=== PATIENT | male | born 2005 | race Hispanic/Latino ===

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

== ENCOUNTER 2024-04-27 21:37 | Emergency (ER) | payer OTHER ==
--- OUTSIDE RECORDS SUMMARY | 2024-04-27 21:41 | XMS REPORT | Continuity of Care Document ---
Author Name Unknown Address [address] [facility] [address] [place] [address] Organization [facility] [place] Address [address] [facility] [address] [place] [address] Care Team Providers Care Senior Technical Recruiter Name Role Phone Fetsus Larson MD Primary Care Physician [phone] LEONARDO GARCIA Attending Clinician Unavailable LEONARDO GARCIA Attending Clinician Unavailable LAUREN TOWNSEND Attending Clinician UnavailKALIA Hammond Attending Clinician Jade Razo RN, Key López Attending Clinician UnavailLeonardo Núñez MD Attending Clinician [phone] LEENA TEIXEIRA Attending Clinician KIRSTIN Guevara Attending Clinician Unavailable KIRSTIN SENIOR Attending Clinician Unavailable NADEGE CRUM Attending Clinician Unavailable NADEGE CRUM Attending Clinician Unavailable Festus Larson MD Attending Clinician [phone] Leena Teixeira MD Attending Clinician + [phone] FESTUS LARSON Attending Clinician Unavailable SRIDHAR KING Attending Clinician UnavailFestus Negro MD Attending Clinician [phone] Ty Attending Clinician Unavailable Only, Ang Db Test Attending Clinician UnavailGreg Iraheta MD Attending Clinician [phone] GREG MENDOZA Attending Clinician Unavailable LEONARDO GARCIA Admitting Clinician Unavailable Ty Admitting Clinician Unavailable Payers Payer Name Policy Type Policy Number Effective Date Expirati on Date Source [place] [employer] [id number] 2023 00:00:00 [facility] [id number] Problems Condition Name Condition Details Condition Category Status Onset Date Resolution Date Last Treatment Date Treating Clinician Comments Source Trauma Trauma Disease Active 04-24 00:00: 00 [facility] Attention deficit hyperactiv ity disorder, predominan tly inattentiv e type Attention Deficit Hyperactiv ity Disorder, Predominan tly Inattentiv e Type Problem Active 07-17 00:00: 00 [facility] Mixed anxiety and depressive disorder Mixed Anxiety and Depressive Disorder Problem Active 07-17 00:00: 00 [facility] Depressive disorder Depressive Disorder Problem Active 07-17 00:00: 00 [facility] Asthma Asthma Problem Active 07-17 00:00: 00 [facility] Gastroesop hageal reflux disease Gastroesop hageal Reflux Disease Problem Active 07-17 00:00: 00 [facility] Intermitte nt palpitatio ns Intermitte nt Palpitatio ns Problem Active 07-17 00:00: 00 [facility] No known active problems No known active problems Disease [facility] Allergies, Adverse Reactions, Alerts Allergy Name Allergy Type Status Severity Reaction(s) Onset Date Inactive Date Treating Clinician Comments Source NO KNOWN ALLERGIE S Drug Class Active [facility] Social History Social Habit Start Date Stop Date Quantity Comments Source [facility] SARS-CoV[facility]2 (event) Not sure [facility] Alcoholic beverage intake 2024-04-25 00:00:00 2024-04-25 00:00:[address] [facility] History of Social function 2024-04-25 00:00:00 2024-04-25 00:00:[address] [facility] Alcohol intake 2014-04-29 00:00:00 2014-04-29 00:00:[address] [facility] Sex assigned at 2004 00:00:00 2004 00:00:[address] [facility] Smoking Status Start Date Stop Date Source Never smoked tobacco [facility] Medications Ordered Medication Name Filled Medication Name Start Date Stop Date Current Medication? Ordering Clinician Indication Dosage Frequency Signature (SIG) Comments Components Source enoxaparin 40 mg/0.4 mL injection 04-25 00:00: 00 05-24 04:59 :00 Yes [id number] 40mg inject 0.4 mL under the skin in the morning for 28 days. [facility] docusate 100 mg capsule 04-25 00:00: 05-11 04:59 :00 Yes [id number] 100mg Take 1 capsule by mouth in the morning and 1 capsule in the evening. Do all this for 15 days. [facility] methocarbam oL 750 mg tablet 04-25 00:00: 05-10 04:59 :00 Yes [id number] 750mg Take 1 tablet by mouth 3 (three) times daily as needed for Pain (scale 4-6) for up to 14 days. [facility] gabapentin 300 mg capsule 04-25 00:00: 05-10 04:59 :00 Yes [id number] 300mg Take 1 capsule by mouth in the morning and 1 capsule at noon and 1 capsule in the evening. Do all this for 14 days. [facility] traMADoL 50 mg tablet 04-25 00:00: 05-03 04:59 :00 Yes [id number] 50mg Take 1 tablet by mouth every 6 (six) hours as needed for Pain (scale 1-3) for up to 7 days. Indication s: acute pain [facility] HYDROcodone -acetaminop hen 10-325 mg tablet 04-25 00:00: 00 05-03 04:59 :00 Yes [id number] 1{tbl} Take 1 tablet by mouth every 6 (six) hours as needed for Pain (scale 4-6) or Pain (scale 7-10) for up to 7 days. Indication s: acute pain [facility] ondansetron 4 mg tablet 04-25 00:00: 00 05-01 04:59 :00 Yes [id number] 4mg Take 1 tablet by mouth every 12 (twelve) hours as needed for Nausea and Vomiting (N/V) for up to 5 days. [facility] amphetamine -dextroamph etamine (ADDERALL XR) 30 mg 24 hr capsule 02-12 00:00: 00 Yes [id number] 30mg Take 1 capsule by mouth every morning. [facility] amphetamine -dextroamph etamine (ADDERALL XR) 30 mg 24 hr capsule 2023-02 00:00: 00 02-12 00:00 :00 No [id number] 30mg Take 1 capsule by mouth every morning. [facility] escitalopra m oxalate 10 mg tablet 16 00:00: 00 Yes [id number] 10mg Take 1 tablet by mouth in the morning. [facility] cloNIDine 0.1 mg tablet 10-22 00:00: 00 Yes [id number] .1mg Take 1 tablet by mouth at bedtime. [facility] amphetamine -dextroamph etamine (ADDERALL XR) 30 mg 24 hr capsule 10-22 00:00: 00 12-14 00:00 :00 No [id number] 30mg Take 1 capsule by mouth every morning. [facility] lidocaine-p rilocaine cream 10-22 00:00: 00 10-23 04:59 :00 No [id number] Apply to area(s) once now for 1 dose. [facility] amphetamine -dextroamph etamine (ADDERALL XR) 30 mg 24 hr capsule 7- 00:00: 00 10-22 00:00 :00 No [id number] 30mg Take 1 capsule by mouth every morning. [facility] cloNIDine 0.1 mg tablet 5-23 00:00: 00 10-22 00:00 :00 No [id number] .1mg Take 1 tablet by mouth at bedtime. [facility] escitalopra m oxalate 10 mg tablet 5-23 00:00: 00 10-22 00:00 :00 No [id number] 10mg Take 1 tablet by mouth in the morning. [facility] ADDERALL XR 30 mg 24 hr capsule 06-28 00:00: 00 08-28 00:00 :00 No [id number] 30mg Take 1 capsule by mouth every morning. [facility] amphetamine -dextroamph etamine (ADDERALL XR) 30 mg 24 hr capsule 06-28 00:00: 00 06-28 00:00 :00 No [id number] 30mg Take 1 capsule by mouth every morning. [facility] amphetamine -dextroamph etamine (ADDERALL XR) 30 mg 24 hr capsule 06-26 00:00: 00 06-28 00:00 :00 No [id number] 30mg Take 1 capsule by mouth every morning. [facility] cloNIDine 0.1 mg tablet 06-26 00:00: 00 06-28 00:00 :00 No [id number] .1mg Take 1 tablet by mouth at bedtime. [facility] escitalopra m oxalate 10 mg tablet 06-26 00:00: 00 06-28 00:00 :00 No [id number] 10mg Take 1 tablet by mouth in the morning. [facility] lidocaine-p rilocaine cream 06-26 00:00: 00 06-27 04:59 :00 No [id number] Apply to area(s) once now for 1 dose. Apply 1 hour before lab draw. [facility] cloNIDine 0.1 mg tablet 5-11 00:00: 00 06-26 00:00 :00 No .1mg Take 1 tablet by mouth at bedtime. [facility] ADDERALL XR 30 mg 24 hr capsule 4-10 00:00: 00 06-26 00:00 :00 No 30mg Take 1 capsule by mouth every morning. [facility] famotidine 40 mg tablet 3-05 00:00: 00 Yes 40mg Take 1 tablet by mouth in the morning. [facility] permethrin (ELIMITE) 5 % cream 04-29 00:00: 00 06-26 00:00 :00 No Apply neck to toes overnight once a week x 2 applicatio ns [facility] Adderall 30 mg tablet Take 1 tablet every day by oral route. Adderall 30 mg tablet Take 1 tablet every day by oral route. No 1 Q1D Adderall 30 mg tablet Take 1 tablet every day by oral route. [facility] Lexapro 1 tab daily for depression Lexapro 1 tab daily for depression No Lexapro 1 tab daily for depression [facility] Ventolin HFA 90 mcg/actuati on aerosol inhaler Inhale 2 puffs as needed by inhalation route. Ventolin HFA 90 mcg/actuati on aerosol inhaler Inhale 2 puffs as needed by inhalation route. No 2puff(s ) Ventolin HFA 90 mcg/actuat ion aerosol inhaler Inhale 2 puffs as needed by inhalation route. [facility] Immunizations Ordered Immunization Name Filled Immunization Name Date Status Comments Source Meningococcal Polysaccharide (groups A, C, Y and W-135) conjugate vaccine (MCV4P) 2017-09-14 00:00:00 Completed TDAP 2017-09-14 00:00:00 Completed Influenza, Live, Trivalent, Intranasal (FLUMIST) 2013-10-30 00:00:00 Completed Influenza, Live, Trivalent, Intranasal (FLUMIST) 2010-11-25 00:00:00 Completed Influenza, Live, Trivalent, Intranasal (FLUMIST) 2010-02-03 00:00:00 Completed DTaP, Unspecified Formulation 2009-02-11 00:00:00 Completed MMR 2009-02-11 00:00:00 Completed IPV 2009-02-11 00:00:00 Completed Varicella (varivax)(chicken pox) 2009-02-11 00:00:00 Completed HEPATITIS A 2008-10-29 00:00:00 Completed HEPATITIS A 2008-01-09 00:00:00 Completed HEPATITIS A 2006-07-19 00:00:00 Completed DTaP, Unspecified Formulation 2006-05-23 00:00:00 Completed Hib-HbOC 2006-05-23 00:00:00 Completed Proquad (MMR/VARICELLA) 2006-05-23 00:00:00 Completed Pneumococcal 7 Conjugate, PCV7 (Prevnar7) 2006-05-23 00:00:00 Completed DTaP, Unspecified Formulation 2005-07-19 00:00:00 Completed Hep B, Adol or Pedi Dosage 2005-07-19 00:00:00 Completed Hib-HbOC 2005-07-19 00:00:00 Completed Pneumococcal 7 Conjugate, PCV7 (Prevnar7) 2005-07-19 00:00:00 Completed IPV 2005-07-19 00:00:00 Completed Pediarix (dtap/hep B/ipv) 2005-05-11 00:00:[address] [facility] Hib-HbOC 2005-05-11 00:00:00 Completed Pneumococcal 7 Conjugate, PCV7 (Prevnar7) 2005-05-11 00:00:00 Completed DTaP, Unspecified Formulation 2005-03-02 00:00:00 Completed Hep B, Adol or Pedi Dosage 2005-03-02 00:00:00 Completed Hib-HbOC 2005-03-02 00:00:00 Completed Pneumococcal 7 Conjugate, PCV7 (Prevnar7) 2005-03-02 00:00:00 Completed IPV 2005-03-02 00:00:00 Completed Hep B, Adol or Pedi Dosage 2004 00:00:00 Completed Meningococcal Polysaccharide (groups A, C, Y and W-135) conjugate vaccine (MCV4P) Unknown Completed [facility] MMR Unknown Completed [facility] Proquad (MMR/VARICELLA) Unknown Completed [facility] TDAP Unknown Completed [facility] Varicella (varivax)(chicken pox) Unknown Completed [facility] Pediarix (dtap/hep B/ipv) Unknown Completed [facility] DTaP, Unspecified Formulation Unknown Completed [facility] Influenza Virus Vaccine Nasal Unknown Completed [facility] HEPATITIS A Unknown Completed [facility] Hep B, Adol or Pedi Dosage Unknown Completed [facility] Hib-HbOC Unknown Completed [facility] Pneumococcal 7 Conjugate, PCV7 (Prevnar7) Unknown Completed [facility] IPV Unknown Completed [facility] Pediarix (dtap/hep B/ipv) Unknown Completed [facility] DTaP, Unspecified Formulation Unknown Completed [facility] Influenza Virus Vaccine Nasal Unknown Completed [facility] HEPATITIS A Unknown Completed [facility] Hep B, Adol or Pedi Dosage Unknown Completed [facility] Hib-HbOC Unknown Completed [facility] Meningococcal Polysaccharide (groups A, C, Y and W-135) conjugate vaccine (MCV4P) Unknown Completed [facility] MMR Unknown Completed [facility] Proquad (MMR/VARICELLA) Unknown Completed [facility] Pneumococcal 7 Conjugate, PCV7 (Prevnar7) Unknown Completed [facility] IPV Unknown Completed [facility] Pediarix (dtap/hep B/ipv) Unknown Completed [facility] TDAP Unknown Completed [facility] Varicella (varivax)(chicken pox) Unknown Completed [facility] Pediarix (dtap/hep B/ipv) Unknown Completed [facility] DTaP, Unspecified Formulation Unknown Completed [facility] DTaP, Unspecified Formulation Unknown Completed [facility] Influenza Virus Vaccine Nasal Unknown Completed [facility] HEPATITIS A Unknown Completed [facility] Hep B, Adol or Pedi Dosage Unknown Completed [facility] Hib-HbOC Unknown Completed [facility] Meningococcal Polysaccharide (groups A, C, Y and W-135) conjugate vaccine (MCV4P) Unknown Completed [facility] MMR Unknown Completed [facility] Proquad (MMR/VARICELLA) Unknown Completed [facility] Pneumococcal 7 Conjugate, PCV7 (Prevnar7) Unknown Completed [facility] IPV Unknown Completed [facility] TDAP Unknown Completed [facility] Varicella (varivax)(chicken pox) Unknown Completed [facility] Influenza Virus Vaccine Nasal Unknown Completed [facility] Pediarix (dtap/hep B/ipv) Unknown Completed [facility] DTaP, Unspecified Formulation Unknown Completed [facility] Influenza Virus Vaccine Nasal Unknown Completed [facility] HEPATITIS A Unknown Completed [facility] Hep B, Adol or Pedi Dosage Unknown Completed [facility] Hib-HbOC Unknown Completed [facility] Meningococcal Polysaccharide (groups A, C, Y and W-135) conjugate vaccine (MCV4P) Unknown Completed [facility] MMR Unknown Completed [facility] Proquad (MMR/VARICELLA) Unknown Completed [facility] Pneumococcal 7 Conjugate, PCV7 (Prevnar7) Unknown Completed [facility] IPV Unknown Completed [facility] TDAP Unknown Completed [facility] HEPATITIS A Unknown Completed [facility] Varicella (varivax)(chicken pox) Unknown Completed [facility] Pediarix (dtap/hep B/ipv) Unknown Completed [facility] DTaP, Unspecified Formulation Unknown Completed [facility] Influenza Virus Vaccine Nasal Unknown Completed [facility] HEPATITIS A Unknown Completed [facility] Hep B, Adol or Pedi Dosage Unknown Completed [facility] Hib-HbOC Unknown Completed [facility] Hep B, Adol or Pedi Dosage Unknown Completed [facility] Meningococcal Polysaccharide (groups A, C, Y and W-135) conjugate vaccine (MCV4P) Unknown Completed [facility] MMR Unknown Completed [facility] Proquad (MMR/VARICELLA) Unknown Completed [facility] Pneumococcal 7 Conjugate, PCV7 (Prevnar7) Unknown Completed [facility] IPV Unknown Completed [facility] TDAP Unknown Completed [facility] Varicella (varivax)(chicken pox) Unknown Completed [facility] Hib-HbOC Unknown Completed [facility] Pediarix (dtap/hep B/ipv) Unknown Completed [facility] DTaP, Unspecified Formulation Unknown Completed [facility] Influenza Virus Vaccine Nasal Unknown Completed [facility] HEPATITIS A Unknown Completed [facility] Hep B, Adol or Pedi Dosage Unknown Completed [facility] Hib-HbOC Unknown Completed [facility] Meningococcal Polysaccharide (groups A, C, Y and W-135) conjugate vaccine (MCV4P) Unknown Completed [facility] MMR Unknown Completed [facility] Proquad (MMR/VARICELLA) Unknown Completed [facility] Pneumococcal 7 Conjugate, PCV7 (Prevnar7) Unknown Completed [facility] IPV Unknown Completed [facility] TDAP Unknown Completed [facility] Varicella (varivax)(chicken pox) Unknown Completed [facility] Pediarix (dtap/hep B/ipv) Unknown Completed [facility] DTaP, Unspecified Formulation Unknown Completed [facility] Influenza, Live, Trivalent, Intranasal (FLUMIST) Unknown Completed [facility] HEPATITIS A Unknown Completed [facility] ty [facility] Hep B, Adol or Pedi Dosage Unknown Completed [facility] Hib-HbOC Unknown Completed [facility] Meningococcal Polysaccharide (groups A, C, Y and W-135) conjugate vaccine (MCV4P) Unknown Completed [facility] MMR Unknown Completed [facility] Proquad (MMR/VARICELLA) Unknown Completed [facility] Pneumococcal 7 Conjugate, PCV7 (Prevnar7) Unknown Completed [facility] Meningococcal Polysaccharide (groups A, C, Y and W-135) conjugate vaccine (MCV4P) Unknown Completed [facility] IPV Unknown Completed [facility] TDAP Unknown Completed [facility] Varicella (varivax)(chicken pox) Unknown Completed [facility] MMR Unknown Completed [facility] Proquad (MMR/VARICELLA) Unknown Completed [facility] Pneumococcal 7 Conjugate, PCV7 (Prevnar7) Unknown Completed [facility] IPV Unknown Completed [facility] TDAP Unknown Completed [facility] Varicella (varivax)(chicken pox) Unknown Completed [facility] Vital Signs Vital Name Observation Time Observation Value Comments S ource Systolic blood pressure 2023-10-23 21:24:00 132 mm[Hg] [facility] Diastolic blood pressure 2023-10-23 21:24:00 83 mm[Hg] [facility] Heart rate 2023-10-23 21:18:00 95 /min [facility] Body temperature 2023-10-23 21:18:[address] [facility] Respiratory rate 2023-10-23 21:18:00 18 /min [facility] Body height 2023-10-23 21:18:00 175.9 cm [facility] Body weight 2023-10-23 21:18:00 101.152 kg [facility] BMI 2023-10-23 21:18:00 32.69 kg/m2 [facility] Body mass index (BMI) [Percentile] Per age and sex 2023-10-23 21:18:00 96.75 % [facility] Oxygen saturation in Arterial blood by Pulse oximetry 2023-10-23 21:18:00 98 /min [facility] Height 2023-07-18 00:00:00 71 [in_i] [facility] BP Diastolic 2023-07-18 00:00:00 64 mm[Hg] [facility] BMI (Body Mass Index) 2023-07-18 00:00:00 31 kg/m2 [facility] BP Systolic 2023-07-18 00:00:00 122 mm[Hg] [facility] Body Weight 2023-07-18 00:00:00 222 [lb_av] [facility] Systolic blood pressure 2023-06-27 21:34:00 135 mm[Hg] [facility] Diastolic blood pressure 2023-06-27 21:34:00 74 mm[Hg] [facility] Heart rate 2023-06-27 21:34:00 76 /min [facility] Body temperature 2023-06-27 21:34:[address] [facility] Respiratory rate 2023-06-27 21:34:00 19 /min [facility] Body height 2023-06-27 21:34:00 178.5 cm [facility] Body weight 2023-06-27 21:34:00 101.209 kg [facility] BMI 2023-06-27 21:34:00 31.76 kg/m2 [facility] Body mass index (BMI) [Percentile] Per age and sex 2023-06-27 21:34:00 96.40 % [facility] Oxygen saturation in Arterial blood by Pulse oximetry 2023-06-27 21:34:00 97 /min [facility] Encounters Start Date/Time End Date/Time Encounter Type Admission Type Attending Clinicians Care Facility Care Department Encounter ID Source 2024-05-14 13:00:00 2024-05-14 13:00:00 Outpatient LEONARDO VEGA MARK [facility] [id number] [facility] 2024-05-03 13:30:00 2024-05-03 13:30:00 Outpatient R LAUREN TOWNSEND [facility] [id number] [facility] 2024-04-29 13:45:00 2024-04-29 13:45:00 Outpatient R [facility] [id number] [facility] 2024-04-26 00:00:00 2024-04-26 21:16:27 Nurse Triage Key Razo Katelyn D [facility] 1..114 [id number] [facility] 2024-04-26 00:00:00 2024-04-26 20:39:23 Telephone Leonardo Garcia [facility] 1..114 [id number] [facility] 2024-04-24 05:54:00 2024-04-25 18:00:00 Inpatient T LEONARDO GARCIA MARK [facility] [id number] [facility] 2024-04-25 11:00:00 2024-04-25 11:00:00 Outpatient R LEENA HAILE [facility] [id number] [facility] 2024-04-23 23:19:00 2024-04-24 04:45:00 Emergency X KIRSTIN S[facility]IOR [facility] [id number] [facility] 2024-03-27 16:20:00 2024-03-27 16:20:00 Outpatient R NADEGE CRUM LESLEY [facility] [id number] [facility] 2024-03-08 00:00:00 2024-03-08 16:18:47 Festus Tran [facility] 1..114 [id number] [facility] 2024-02-29 15:00:00 2024-02-29 15:00:00 Outpatient LEENA MANCIA [facility] [id number] [facility] 2024-02-13 00:00:00 2024-02-13 16:54:42 Micheal Larson Festus [facility] [id number] [facility] 2024-02-13 00:00:00 2024-02-13 15:40:43 Telephone Rosalie acosta Leena [facility] [id number] [facility] 2024-01-02 14:00:00 2024-01-02 14:00:00 Outpatient FESTUS DISLA [facility] [id number] [facility] 2023-12-15 00:00:00 2023-12-15 14:39:25 Micheal Larson [facility] [id number] [facility] 2023-11-23 11:00:00 2023-11-23 11:00:00 Outpatient KALIA CRAWFORD [facility] [id number] [facility] [facility] 2023-11-06 13:40:00 2023-11-06 13:40:00 Outpatient LEENA MANCIA [facility] [id number] [facility] 2023-11-01 14:00:00 2023-11-01 14:00:00 Outpatient SRIDHAR GRACIA [facility] [id number] [facility] 2023-10-31 00:00:00 2023-10-31 09:22:44 Telephone Festus Larson [facility] 1.2.840.114 350.1.13.10 [id number] [id number] 225 [id number] [facility] 2023-10-23 16:00:00 2023-10-23 16:50:30 Outpatient R ROSALIE ACOSTA [facility] [id number] [facility] 2023-10-23 16:00:00 2023-10-23 16:50:30 Office Visit Rosalie acosta Leena [facility] 1.2.840.114 350.1.13.10 4.2.7.2.686 [id number] 225 [id number] [facility] 2023-10-14 00:00:00 2023-10-16 08:44:45 Telephone [facility] 1.2.840.114 350.1.13.10 [id number] [id number] 225 [id number] [facility] 2023-09-15 09:40:00 2023-09-15 09:40:00 Outpatient FESTUS DISLA [facility] [id number] [facility] 2023-09-06 13:40:00 2023-09-06 13:40:00 Outpatient FESTUS DISLA [facility] [id number] [facility] 2023-08-28 00:00:00 2023-08-29 10:02:53 Telephone Festus Larson [facility] 1.2.840.114 350.1.13.10 4.2.7.2.686 [id number] 225 [id number] [facility] 2023-07-18 00:00:00 2023-07-18 00:00:00 Anne-Marie Womack MD: [id number] , [address], [place] [address] , Ph. [facility] [place] - _[facility] [id number] [facility] 2023-07-03 00:00:00 2023-07-05 08:30:31 Telephone [facility] 1.2.840.114 350.1.13.10 4.2.7.2.686 [id number] 225 [id number] [facility] 2023-06-29 00:00:00 2023-06-29 15:06:58 Telephone [facility] 1.2.840.114 350.1.13.10 4.2.7.2.686 [id number] 225 [id number] [facility] 2023-06-27 16:20:00 2023-06-27 16:58:32 Outpatient R NEOFESTUS [facility] [id number] [facility] 2023-06-27 16:20:00 2023-06-27 16:58:32 Office Visit [facility] 1.2.840.114 350.1.13.10 4.2.7.2.686 [id number] 225 [id number] [facility] 2023-06-23 00:00:00 2023-06-27 08:55:31 Telephone [facility] 1.2.840.114 350.1.13.10 4.2.7.2.686 [id number] 225 [id number] [facility] 2023-06-20 00:00:00 2023-06-20 10:38:47 Telephone [facility] 1.2.840.114 350.1.13.10 4.2.7.2.686 [id number] 225 [id number] [facility] 2023-05-19 00:00:00 2023-05-19 00:00:00 Outpatient Jacki_Kaitlyn STANLEY VFP VFP [id number] Audrey kessler 2020-10-05 18:22:48 2020-10-05 18:32:48 Laboratory Only Only, Ang Db Test Song, [facility] [id number] 350.1.13.10 [id number] [id number] [facility] 2020-10-05 18:25:00 2020-10-05 18:25:00 Outpatient R GREG MENDOZA [facility] [id number] [facility] Notes Date/Time Note Provider Source 2024-04-26 20:47:00 Regarding: femur surgery 04/24 lightheaded, vision got blurry and sweating when getting up x 10 min ago ----- Message from Patient Wrapper And Preserver sent at 04/26/2024 8:38 PM CDT ----- Jose Woodall is a 18 year old male Key Razo RN [facility] 2024-04-26 20:47:00 Adult Triage Assessment Last Clinic Visit: 04/24/24, general surgery and ortho, L femur Primary Symptom: reports that when was attempting to get up that vision was blurry Onset / Duration: today prior to call, and earlier today when spoke with clinic Location / Description: neuro Pain / Severity: 7/10 pain in leg Associated Symptoms: 146/88 blood pressure, reports that the symptoms have resolved Fever / Method: denies fever did not check Hydration: reports unable to have BM, making urine and eating/drinking normally and drinking enough water Treatment so far: 0300 took the pain pill, is currently taking docusate 100 mg in evenings and gabapentin as prescribed. Effect on ADL's: moderate LMP: N/A Pre-existing condition / Immunocompromised: No PMH Jose Woodall is a 18 year old male whose mother is calling today regarding patient getting flushes of dizziness and hot flashes when standing, and needs assistance sitting down. This has happened multiple times today despite not taking the pain medication since 0300 this AM. Assessment and triage completed per dizziness-lightheaded protocol. Mother advised to be seen in ER and pending ortho call back for assessment. Advised mother on emergent symptoms and would page out ortho for call back. Advised to call access center nurses with questions and concerns 29/08. Patient mother verbalizes understanding and agrees to follow plan of care. 2104 paged deckhand sponge boat ortho at this time for call back 2109 paged x 2 ortho deckhand sponge boat Patient mother unsure if going to the ER, explained emergent symptoms and reason for disposition and explained if deckhand sponge boat gets back to me I will relay information to her. Key Razo RN Reason for Disposition SEVERE dizziness (e.g., unable to stand, requires support to walk, feels like passing out now) Protocols used: Dizziness - [id number] [facility] 2024-03-11 10:21:18 Attempted to call, left VM patient needs appt before refilling medication. [facility] Naomy Alberto MA [facility] 2024-03-08 16:00:13 LEMUEL-- 9.16.24 Last filled-- 1.7.25 F/u due-- January, no show last 2 appts [facility] 2024-03-08 15:15:43 Mother requesting refills for pt famotidine 40 mg tablet and amphetamine-dextroamphetamin e (ADDERALL XR) 30 mg 24 hr capsule and HEB in [place]. [facility] 2024-02-13 15:39:41 Spoke with [facility], informed her referral was placed in October of 2023. Gave [facility] referral department number to get cardio information, and set up appointment. MOC verbalized understanding. Alberto MA [facility] 2024-02-13 15:17:30 Patient is requesting a referral to: Dept: cardiology Reason for referral Duration of problem: on going Internal / External referral: R03.0 (ICD-10-CM Name of provider / location patient requesting: [facility] Phone number: [phone] Fax number: na Appt already scheduled?: no If yes, date of appt.: na Zamora [facility] 2024-02-13 15:14:13 Patient requesting a refill of: Medication: amphetamine-dextroamphetamin e Dose: 30 mg Route: refill Quantity: 30 Pharmacy: [facility] [address] [facility] [address] [place] [id number] Last appt.: 10/22 Next appt.: 02/28 [facility] 2023-12-15 14:26:29 LEMUEL 10/23/2023 LRF 10/23/2023 Appt due 01/22/2024 Alberto MA [facility] 2023-12-15 14:21:50 Patient requesting a refill of: Medication: amphetamine-dextroamphetamin e Dose: 30 mg Route: refill Quantity: 30 Pharmacy: [facility] [address] & [address] [place] [address] Last appt.: 10/22 Next appt.: 01/01 [facility] 2023-10-31 09:19:20 Called and spoke with MO. She states that patient has tried OTC medication with no relieve for cough and congestion. I scheduled her an appointment for tomorrow. MOC will call back if she decides to take him to urgent care this evening. Katia Sawyer MA [facility] 2023-10-31 08:43:51 Jose Woodall is a 17 year old male Pt mom called and states that pt has a cough and has congestion. She is requesting to speak with a nurse for recommendations. Please advise. Viji Ayon [facility] 2023-10-16 08:44:18 Pt schedule with on 10/22 Peyton Harris [facility] 2023-10-14 17:54:47 Jose Woodall is a 17 year old male whose mother is calling to schedule an ADHD follow up appt but Dr. Larson doesn't have any openings until January. Please contact the [facility] to assist. Neha Jean [facility] 2023-08-28 15:41:46 Last filled: 06/29/2023 LEMUEL: 06/27/2023 Jenise Hager MA [facility] 2023-08-28 15:31:30 Jose Woodall is a 17 year old male Pt is going out of town. Mom reschedule for Sep 14 Mom is asking can you refill this medication or does he have to wait until his next visit to get a refill Disp Refills Start End KALANI ADDERALL XR 30 mg 24 hr capsule Ally Goncalves [facility] 2023-07-05 08:30:09 Disregard, brand name sent. T [facility] 2023-07-03 09:29:44 Images from the original note were not included. Julieta Laureano [facility] 2023-06-29 16:17:34 Addended by: FESTUS LARSON on: 06/29/2023 04:17 PM Modules accepted: Orders T [facility] 2023-06-29 16:12:16 Please send as brand name T [facility] 2023-06-29 14:45:23 Jose Woodall is a 17 year old male Patients mother called stating the medications sent to [facility] pharmacy 06/26 need to be sent to [facility] pharmacy on file. Please contact [phone] (home) [phone] (work) [facility] [address] Aroldo Alfonso [facility] 2023-06-27 08:55:11 Adderall XR 30mg, Lexapro 10mg, clonidine 0.1mg [facility]ED-PEDIATRICS STAFF [facility] 2023-06-26 11:52:05 Records scanned into chart and placed on Dr Larson's desk for review. [facility] 2023-06-23 12:27:43 Records placed in basket in nurses station. Julieta Laureano [facility]
[2024-04-27] MEDS ORDERED: NA CHLORIDE 0.9% 1,000 ML ONE (22:08)
[2024-04-27 22:25] LABS: Absolute Lymphocytes (CBC) 1.1 K/uL (0.7-4.9); Absolute Monocytes 0.8 K/uL (0.1-1.3); Absolute Neutrophil 6.3 K/uL (1.8-8.0); Basophils % 0.2 % (0-1.3); Eosinophils % 0.4 % (0-4.4); Hematocrit 25.9 % (39.6-49.0); Hemoglobin 8.5 g/dL (13.6-17.9); Lymphocytes % 13.7 % (15.3-44.8); MCH 25.3 pg (27.0-35.0); MCHC 32.9 g/dL (32.0-36.0); MCV 76.8 fL (80-100); MPV 7.1 fL (7.6-11.3); Monocytes % 10.2 % (3.3-12.3); Neutrophils % 75.5 % (41.7-73.7); Nucleated Red Blood Cells % 0.1 % (0-0); Platelets 277 thou/uL (152-406); RBC Red Blood Cell Count 3.38 M/uL (4.33-5.43); Red Cell Distribution Width 12.9 % (12.1-15.2); Specific Gravity 1.012 (1.005-1.030); Urine Bilirubin NEGATIVE (Negative); Urine Blood Negative (Negative); Urine Clarity Clear (Clear); Urine Color Light-Yellow (Yellow); Urine Glucose NEGATIVE (Negative); Urine Ketones NEGATIVE (Negative); Urine Microscopic Reflex YN NO UMIC; Urine Nitrite NEGATIVE (Negative); Urine Protein NEGATIVE (Negative); Urine Urobilinogen Normal (Normal)
[2024-04-27 22:37] LABS: ALT/SGPT 36 U/L (16-61); AST/SGOT 32 U/L (15-37); Albumin 2.5 g/dL (3.4-5.0); Albumin/Globulin Ratio 0.8 (1.1-1.8); Alkaline Phosphatase 61 U/L (45-117); Anion Gap 7.8 mEq/L (5.0-15.0); BUN Blood Urea Nitrogen 11 mg/dL (7-18); Bicarbonate 28 mEq/L (21-32); Bilirubin Direct 0.3 mg/dL (0-0.2); Bilirubin Indirect, Calculated 0.5 mg/dL (0.2-0.8); Bilirubin Total 0.8 mg/dL (0.2-1.0); Globulin 3.3 g/dL (2.3-3.5); Glomerular Filtration Rate 137 ml/min (=/>90); Glucose Level 100 mg/dL (74-106); Magnesium 1.9 mg/dL (1.6-2.4); Potassium 3.8 mEq/L (3.5-5.1); Protein, Total 5.8 g/dL (6.4-8.2); Sodium Level 136 mEq/L (136-145)
[2024-04-27 22:38] LABS: PT Prothrombin Time 13.3 SECONDS (10-13.0); PTT, Activated Partial Thromb 33.6 SECONDS (27.2-37.4); Protime INR 1.18
[2024-04-27 22:40] LABS: Troponin High Sensitivity < 3.0 pg/mL (<58.9)
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
--- NOTE | 2024-04-27 22:55 | ER ---
Nurse's Notes [facility] Name: Marito Dee Age: 18 yrs Sex: Male : 2005 Arrival Date: 04/27/2024 Time: 21:37 Bed 15 Private MD: Diagnosis: Tachycardia, unspecified;Volume depletion, unspecified Presentation: 04/27 21:45 Chief complaint: EMS states: difficult to arouse, blurry vision, tachycardic. kj2 Coronavirus screen: Client denies travel out of the [place] in the last 14 days. Ebola Screen: No symptoms or risks identified at this time. Initial Sepsis Screen: Does the patient meet any 2 criteria? No. Patient's initial sepsis screen is negative. Does the patient have a suspected source of infection? No. Patient's initial sepsis screen is negative. Risk Assessment: Do you want to hurt yourself or someone else? Patient reports no desire to harm self or others. Onset of symptoms was April 27, 2024. 21:45 Method Of Arrival: EMS: [facility] kj2 21:45 Acuity: QUETA 3 kj2 22:16 Care prior to arrival: IV initiated. 20 GA, in the left antecubital area. vc1 Triage Assessment: 21:50 General: Appears in no apparent distress. uncomfortable, Behavior is cooperative. kj2 21:53 Pain: Complains of pain in left leg Pain currently is 6 out of 10 on a pain scale. kj2 Neuro: Level of Consciousness is awake, alert, obeys commands, Oriented to person, place, time, situation. Cardiovascular: Patient's skin is warm and dry. Respiratory: Airway is patent Respiratory effort is even, unlabored. GI: No signs and/or symptoms were reported involving the gastrointestinal system. : No signs and/or symptoms were reported regarding the genitourinary system. Historical: - Allergies: 21:55 No Known Allergies; kj2 - PMHx: 21:50 ADD/ADHD; Anxiety; Asthma; kj2 - Immunization history:: Adult Immunizations unknown. - Infectious Disease History:: Denies. - Social history:: Smoking status: unknown. Screenin:14 [facility] ED Fall Risk Assessment (Adult) History of falling in the last 3 months, vc1 including since admission No falls in past 3 months (0 pts) Confusion or Disorientation No (0 pts) Intoxicated or Sedated No (0 pts) Impaired Gait Yes (1 pt) Mobility Assist Device Used No (0 pt) Altered Elimination No (0 pt) Score/Fall Risk Level 0 - 2 = Low Risk Oriented to surroundings, Maintained a safe environment, Educated pt \T\ family on fall prevention, incl call for assistance when getting out of bed, Provided non-skid footwear, Hourly rounding (assess needs \T\ fall precautionary measures) done. Abuse screen: Denies threats or abuse. Nutritional screening: No deficits noted. Tuberculosis screening: No symptoms or risk factors identified. Assessment: 22:48 Reassessment: Patient appears in no apparent distress at this time. No changes from 1 previously documented assessment. Patient and/or family updated on plan of care and expected duration. Pain level reassessed. Patient is alert, oriented x 3, equal unlabored respirations, skin warm/dry/pink. Vital Signs: 21:45 Weight 94.35 kg; Height 6 ft. 0 in. ; kj2 21:45 BP 147 / 73; Pulse 99; Resp 20; Temp 98; Pulse Ox 100% ; kj2 22:47 BP 160 / 85; Pulse 103; Resp 19; Pulse Ox 100% ; vc1 23:46 BP 152 / 83; Pulse 92; Resp 18; Pulse Ox 100% ; vc1 21:45 Body Mass Index 28.21 (94.35 kg, 182.88 cm) - Percentile 91.1 % kj2 ED Course: 21:44 Patient arrived in ED. kj2 21:47 Elizabeth Bass FNP-C is [facility]. kb 21:47 Lewis Alcantara MD is Attending Physician. kb 21:50 Triage completed. kj2 22:13 Viji Rodriguez, RN is Primary Nurse. vc1 22:14 Basic Metabolic Panel Sent. vc1 22:14 CBC with Diff Sent. vc1 22:14 Hepatic Function Sent. vc1 22:14 Magnesium Sent. vc1 22:14 Protime (+inr) Sent. vc1 22:14 Ptt, Activated Sent. vc1 22:14 Troponin High Sensitivity Sent. vc1 22:14 Urinalysis w/ reflexes Sent. vc1 22:14 Arm band placed on right wrist. vc1 22:15 Patient has correct armband on for positive identification. Bed in low position. Call vc1 light in reach. Provided Education on: call light. gambling monitor on. Pulse ox on. NIBP on. 22:16 Maintain EMS IV. Dressing intact. Good blood return noted. Site clean \T\ dry. Gauge \T\ vc 1 site: 20 left AC. Flushed with 10 mL NS. 23:01 No provider procedures requiring assistance completed. IV discontinued, intact, vc1 bleeding controlled, No redness/swelling at site. Pressure dressing applied. Administered Medications: 22:16 Drug: NS 0.9% IV 1000 ml IV at 1 bolus Per protocol; to be given as a bolus over 60 vc1 minutes Route: IV; Rate: 1 bolus; Site: left antecubital; 23:47 Follow up: IV Status: Completed infusion; IV Intake: 1000ml vc1 Medication: 22:15 VIS not applicable for this client. vc1 Intake: 23:47 IV: 1000ml; Total: 1000ml. vc1 Outcome: 22:55 Discharge ordered by MD. otto 23:01 Discharged to home via wheelchair, with family, vc1 23:01 Condition: stable 23:01 Discharge instructions given to patient, family, Instructed on discharge instructions, follow up and referral plans. Demonstrated understanding of instructions, follow-up care, 23:47 Patient left the ED. vc1 Signatures: Elizabeth Bass FNP-C FNP-Ckb Cal[place]ote, Vanessa RN RN vc1 Etelvina Fuller RN RN kj2
[2024-04-28 00:08] VITALS: TEMP 98; O2SAT 100
[2024-04-28 00:10] VITALS: BP 152/83
--- NOTE | 2024-04-29 12:03 | EKG ---
Test Date: 2024-04-27 Test Time: 22:28:02 Termite Control Service Representative: QUITA MEASUREMENT RESULTS: Intervals: Rate: 94 GA: 154 QRSD: 86 QT: 334 QTc: 417 [place]: P: 34 GA: 154 QRS: 70 T: 25 INTERPRETIVE STATEMENTS: Normal sinus rhythm Normal ECG Compared to ECG 02/15/2023 02:52:31 No significant changes Electronically Signed On 04-29-24 11:59:59 CDT by Yonas Grey
== END 2024-04-27 23:47 | disposition home or self-care (01) ==
LOC: ER 21:37
DX: R00.0 Tachycardia, unspecified (principal); E86.9 Volume depletion, unspecified
CPT/HCPCS: 96361; 93005; 85025; 80048; 36415; 83735; 85610; 80076; 85730; 81003; 84484; 96360; 99285; J7030

== ENCOUNTER 2024-06-02 23:26 | Emergency (ER) | payer OTHER ==
--- OUTSIDE RECORDS SUMMARY | 2024-06-02 23:31 | XMS REPORT | Continuity of Care Document ---
Author Name Unknown Address [address] [facility] [place] [address] [facility] Address [address] [facility] [place] [address] Care Team Providers Care Carriage Dogger Name Role Phone GUTIERREZ WOLFE Primary Care Physician UnavailGUTEIRREZ Au Attending Clinician LEONARDO Cunningham Attending Clinician LEONARDO Cunningham Attending Clinician Unavailable VINCENT TOWNSEND K.HEleanor Attending Clinician Leonardo Barr MD Attending Clinician [phone] Paul MARCOS, Vincent K.H. Attending Clinician [phone] Maloney PTJulieta R Attending Clinician Greta Cantu MD Attending Clinician [phone] GRETA CUMMINGS Attending Clinician GRETA East Attending Clinician Unavailrandall Wolfe MD, Gutierrez Attending Clinician [phone] ALEJANDRO LORA Attending Clinician Unavailable ALEJANDRO LORA Attending Clinician Alejandro Noyola MD Attending Clinician [phone] Ronnie RN, Piedad L Attending Clinician KALIA Lewis Attending Clinician Jade Obando RN, Pooja Hernandez Attending Clinician Unavail deon Davison RN, Sarah Attending Clinician Key Arteaga RN Attending Clinician Unavailab LEENA Delgado Attending Clinician Koko Hairston MD Attending Clinician [phone] Daria Sherman MD Attending Clinician KIRSTIN SENIOR Attending Clinician Unavailable KIRSTIN SENIOR Attending Clinician Unavailable NADEGE CRUM Attending Clinician Unavailable NADEGE CRUM Attending Clinician Unavailable Reji MARCOS, Leena Attending Clinician [phone]- [phone] SRIDHAR KING Attending Clinician Unavaila olman Wolfe MD, Gutierrez Attending Clinician [phone] Ty Attending Clinician Unavailable Only, Ang Db Test Attending Clinician UnavailLore Iraheta MD Attending Clinician [phone] LORE NAVARRO Attending Clinician Unavailable GARCIALEONARDO Admitting Clinician Unavailable Ty Admitting Clinician Unavailable Payers Payer Name Policy Type Policy Number Effective Date Expirati on Date Source [place] [employer] [id number] 2023 00:00:00 [facility] [id number] Problems Condition Name Condition Details Condition Category Status Onset Date Resolution Date Last Treatment Date Treating Clinician Comments Source Trauma Trauma Disease Active 04-24 00:00: 00 [facility] Attention deficit hyperactiv ity disorder, predominan tly [...] Reflux Disease Problem Active 07-17 00:00: 00 [facility] Intermitte nt palpitatio ns Intermitte nt Palpitatio ns Problem Active 07-17 00:00: 00 [facility] No known active problems No known active problems Disease [facility] Allergies, Adverse Reactions, Alerts Allergy Name Allergy Type Status Severity Reaction(s) Onset Date Inactive Date Treating Clinician Comments Source NO KNOWN ALLERGIE S Drug Class Active [facility] Social History Social Habit Start Date Stop Date Quantity Comments [facility]2 (event) Not sure [facility] Alcoholic beverage intake 2024-05-29 00:00:00 2024-05-29 00:00:00 [facility] History of Social function 2024-05-29 00:00:00 2024-05-29 00:00:00 [facility] Alcohol intake 2014-04-29 00:00:00 2014-04-29 00:00:00 [facility] Sex assigned at 2004 00:00:00 2005 00:00:00 [facility] Smoking Status Start Date Stop Date Source Never smoked tobacco [facility] Medications Ordered Medication Name Filled Medication Name Start Date Stop Date Current Medication? Ordering Clinician Indication Dosage Frequency Signature (SIG) Comments Components Source traMADoL 50 mg tablet 05-29 00:00: 00 06-06 04:59 :00 Yes [id number] 50mg Take 1 tablet by mouth every 6 (six) hours as needed for Pain (scale 7-10) for up to 7 days. Indication s: acute pain [facility] methocarbam oL 750 mg tablet 05-29 00:00: 00 06-06 04:59 :00 Yes [id number] 750mg Take 1 tablet by mouth 4 (four) times daily for 7 days. [facility] HYDROcodone -acetaminop hen 7.5-325 mg per tablet 16 00:00: 00 05-30 04:59 :00 Yes [id number] 1{tbl} Take 1 tablet by mouth every 6 (six) hours as needed for Pain for up to 7 days. Indication s: acute pain, s/p femur IMN [facility] HYDROcodone -acetaminop hen 7.5-325 mg per tablet 09 00:00: 00 05-23 04:59 :00 Yes [id number] 1{tbl} Take 1 tablet by mouth every 6 (six) hours as needed for Pain for up to 7 days. Indication s: acute pain [facility] methocarbam oL 750 mg tablet 05-14 00:00: 00 Yes [id number] 750mg Take 1 tablet by mouth 3 (three) times daily as needed for Insomnia (muscle spasms). [facility] cloNIDine 0.1 mg tablet 05-08 00:00: 00 Yes [id number] .1mg Take 1 tablet by mouth at bedtime. [facility] escitalopra m oxalate 10 mg tablet 05-08 00:00: 00 Yes [id number] 10mg Take 1 tablet by mouth in the morning. [facility] famotidine 40 mg tablet 05-08 00:00: 00 Yes [id number] 40mg Take 1 tablet by mouth in the morning. [facility] albuterol sulfate HFA 90 mcg/actuati on aerosol inhaler 05-08 00:00: 00 Yes [id number] 2{puff} Inhale 2 Puffs every 4 (four) hours as needed for Wheezing or Shortness of Breath. [facility] ADDERALL XR 30 mg 24 hr capsule 05-08 00:00: 00 Yes [id number] 30mg Take 1 capsule by mouth every morning. [facility] HYDROcodone -acetaminop hen 10-325 mg tablet 05-08 00:00: 00 05-16 04:59 :00 Yes [id number] 1{tbl} Take 1 tablet by mouth every 6 (six) hours as needed for Pain (scale 4-6) for up to 7 days. Indication s: acute pain, surgery [facility] amphetamine -dextroamph etamine (ADDERALL XR) 30 mg 24 hr capsule 05-08 00:00: 00 05-08 00:00 :00 No [id number] 30mg Take 1 capsule by mouth every morning. [facility] HYDROcodone -acetaminop hen 10-325 mg tablet 05-03 00:00: 00 Yes [id number] 1{tbl} Take 1 tablet by mouth every 6 (six) hours as needed for Pain (scale 4-6). Indication s: acute pain, femur fx with surgery [facility] HYDROcodone -acetaminop hen 10-325 mg tablet 05-02 00:00: 05-03 00:00 :00 No [id number] 1{tbl} Take 1 tablet by mouth every 6 (six) hours as needed for Pain (scale 4-6) for up to 7 days. Indication s: acute pain, femur fx with surgery [facility] enoxaparin 40 mg/0.4 mL injection enoxaparin 40 mg/0.4 mL injection 04-25 00:00: 05-24 04:59 :00 Yes [id number] 40mg inject 0.4 mL under the skin in the morning for 28 days. [facility] docusate 100 mg capsule 04-25 00:00: 05-11 04:59 :00 Yes [id number] 100mg Take 1 capsule by mouth in the morning and 1 capsule in the evening. Do all this for 15 days. [facility] methocarbam oL 750 mg tablet 04-25 00:00: 05-10 04:59 :00 Yes [id number] 750mg Take 1 tablet by mouth 3 (three) times daily as needed for Pain (scale 4-6) for up to 14 days. [facility] gabapentin 300 mg capsule 04-25 00:00: 00 05-10 04:59 :00 Yes [id number] 300mg Take 1 capsule by mouth in the morning and 1 capsule at noon and 1 capsule in the evening. Do all this for 14 days. [facility] traMADoL 50 mg tablet 04-25 00:00: 00 05-03 04:59 :00 Yes [id number] 50mg Take 1 tablet by mouth every 6 (six) hours as needed for Pain (scale 1-3) for up to 7 days. Indication s: acute pain [facility] HYDROcodone -acetaminop hen 10-325 mg tablet 20 00:00: 00 05-02 14:00 :30 No [id number] 1{tbl} Take 1 tablet by mouth every 6 (six) hours as needed for Pain (scale 4-6) or Pain (scale 7-10) for up to 7 days. Indication s: acute pain [facility] ondansetron 4 mg tablet 04-25 00:00: 00 05-01 04:59 :00 Yes [id number] 4mg Take 1 tablet by mouth every 12 (twelve) hours as needed for Nausea and Vomiting (N/V) for up to 5 days. [facility] EPINEPHrine 1:1,000 (1 mg/mL) (ADRENALIN) injection 04-24 19:00: 00 04-24 20:27 :04 No Infiltrati on, ONCE INTRA PROCEDURE, Starting on Mon04/24/24 at 1400, Until Mon04/24/24 at 1527, Routine, Intra-op [facility] bupivacaine (preserv free) (SENSORCAIN E MPF) 0.25 % (2.5 mg/mL) injection 04-24 19:00: 00 04-24 20:26 :52 No Infiltrati on, ONCE INTRA PROCEDURE, Starting on Mon04/24/24 at 1400, Until Mon04/24/24 at 1526, Routine, Intra-op [facility] acetaminoph en (OFIRMEV) IV piggyback 04-24 18:09: 00 04-24 18:41 :18 No IV Infusion, Administer over 15 Minutes, ONCE INTRA PROCEDURE, Starting on Mon04/24/24 at 1309, Until Mon04/24/24 at 1341, Routine, Intra-op [facility] ondansetron (ZOFRAN (PF)) injection 04-24 18:09: 00 04-24 18:41 :18 No Slow IV Push, ONCE INTRA PROCEDURE, Starting on Mon04/24/24 at 1309, Until Mon04/24/24 at 1341, Administer over 2-5 Minutes, [facility] lactated ringers [facility] infusion 04-24 16:30: 00 04-24 18:41 :18 No IV Infusion, CONTINUOUS PRN, Starting on Mon04/24/24 at 1130, Until Mon04/24/24 at 1341, Routine, Intra-op [facility] ceFAZolin (ANCEF) injection 04-24 16:20: 00 04-24 18:41 :18 No Intravenou s, ONCE INTRA PROCEDURE, Starting on Mon04/24/24 at 1120, Until Mon04/24/24 at 1341, HARIKA, Intra-op [facility] HYDROmorphO ne (DILAUDID) injection 04-24 16:20: 00 04-24 18:41 :19 No Slow IV Push, ONCE INTRA PROCEDURE, Starting on Mon04/24/24 at 1120, Until Mon04/24/24 at 1341, Routine, Intra-op [facility] phenylephri ne (VAZCULEP) injection 04-24 16:08: 00 04-24 18:41 :19 No Slow IV Push, ONCE INTRA PROCEDURE, Starting on Mon04/24/24 at 1108, Until Mon04/24/24 at 1341, Routine, Intra-op [facility] dexMEDEtomi dine (PRECEDEX) 20 mcg/0.2 mL syringe 04-24 15:59: 00 04-24 18:41 :19 No Slow IV Push, ONCE INTRA PROCEDURE, Starting on Mon04/24/24 at 1059, Until Mon04/24/24 at 1341, Routine, Intra-op [facility] dexamethaso ne (DECADRON PHOSPHATE) 4 mg/mL injection 04-24 15:52: 00 04-24 18:41 :19 No IV Push, ONCE INTRA PROCEDURE, Starting on Mon04/24/24 at 1052, Until Mon04/24/24 at 1341, Routine, Intra-op [facility] rocuronium (ZEMURON) injection 04-24 15:51: 00 04-24 18:41 :19 No IV Push, ONCE INTRA PROCEDURE, Starting on Mon04/24/24 at 1051, Until Mon04/24/24 at 1341, Routine, Intra-op [facility] propofoL IV infusion 04-24 15:50: 00 04-24 18:41 :19 No Intravenou s, ONCE INTRA PROCEDURE, Starting on Mon04/24/24 at 1050, Intra-op [facility] lidocaine 1% (XYLOCAINE) 100 mg/10 mL (1 %) injection 04-24 15:49: 00 04-24 18:41 :19 No Intravenou s, ONCE INTRA PROCEDURE, Starting on Mon04/24/24 at 1049, Until Mon04/24/24 at 1341, Routine, Intra-op [facility] FENTanyl (PF) (SUBLIMAZE) injection 04-24 15:49: 00 04-24 18:41 :19 No Intravenou s, ONCE INTRA PROCEDURE, Starting on Mon04/24/24 at 1049, Until Mon04/24/24 at 1341, Routine, Intra-op [facility] NaCl 0.9% (NS) IV infusion 04-24 15:44: 00 04-24 18:41 :18 No IV Infusion, CONTINUOUS PRN, Starting on Mon04/24/24 at 1044, Until Mon04/24/24 at 1341, Routine, Intra-op [facility] midazolam (VERSED) injection 04-24 15:44: 00 04-24 18:41 :19 No IV Push, ONCE INTRA PROCEDURE, Starting on Mon04/24/24 at 1044, Until Mon04/24/24 at 1341, Routine, Intra-op [facility] amphetamine -dextroamph etamine (ADDERALL XR) 30 mg 24 hr capsule 02-12 00:00: 00 05-08 00:00 :00 No [id number] 30mg Take 1 capsule by mouth every morning. [facility] amphetamine -dextroamph etamine (ADDERALL XR) 30 mg 24 hr capsule 2023-02 00:00: 00 02-12 00:00 :00 No [id number] 30mg Take 1 capsule by mouth every morning. [facility] escitalopra m oxalate 10 mg tablet -16 00:00: 00 05-08 00:00 :00 No [id number] 10mg Take 1 tablet by mouth in the morning. [facility] cloNIDine 0.1 mg tablet 16 00:00: 00 05-08 00:00 :00 No [id number] .1mg Take 1 tablet by mouth at bedtime. [facility] amphetamine -dextroamph etamine (ADDERALL XR) 30 mg 24 hr capsule 10-22 00:00: 00 12-14 00:00 :00 No [id number] 30mg Take 1 capsule by mouth every morning. [facility] lidocaine-p rilocaine cream 10-22 00:00: 00 10-23 04:59 :00 No [id number] Apply to area(s) once now for 1 dose. [facility] amphetamine -dextroamph etamine (ADDERALL XR) 30 mg 24 hr capsule 08-28 00:00: 00 10-22 00:00 :00 No [id number] 30mg Take 1 capsule by mouth every morning. [facility] cloNIDine 0.1 mg tablet 06-28 00:00: 00 10-22 00:00 :00 No [id number] .1mg Take 1 tablet by mouth at bedtime. [facility] escitalopra m oxalate 10 mg tablet 06-28 00:00: 00 10-22 00:00 :00 No [id number] 10mg Take 1 tablet by mouth in the morning. [facility] ADDERALL XR 30 mg 24 hr capsule 0 -23 00:00: 00 08-28 00:00 :00 No [id number] 30mg Take 1 capsule by mouth every morning. [facility] amphetamine -dextroamph etamine (ADDERALL XR) 30 mg 24 hr capsule 0 5-23 00:00: 00 06-28 00:00 :00 No [id number] 30mg Take 1 capsule by mouth every morning. [facility] amphetamine -dextroamph etamine (ADDERALL XR) 30 mg 24 hr capsule 06-26 00:00: 00 06-28 00:00 :00 No [id number] 30mg Take 1 capsule by mouth every morning. [facility] cloNIDine 0.1 mg tablet 06-26 00:00: 00 06-28 00:00 :00 No [id number] .1mg Take 1 tablet by mouth at bedtime. [facility] escitalopra m oxalate 10 mg tablet 06-26 00:00: 00 06-28 00:00 :00 No [id number] 10mg Take 1 tablet by mouth in the morning. [facility] lidocaine-p rilocaine cream 06-26 00:00: 00 06-27 04:59 :00 No [id number] Apply to area(s) once now for 1 dose. Apply 1 hour before lab draw. [facility] cloNIDine 0.1 mg tablet 06-16 00:00: 00 06-26 00:00 :00 No .1mg Take 1 tablet by mouth at bedtime. [facility] ADDERALL XR 30 mg 24 hr capsule -10 00:00: 00 06-26 00:00 :00 No 30mg Take 1 capsule by mouth every morning. [facility] famotidine 40 mg tablet 04-10 00:00: 00 05-08 00:00 :00 No 40mg Take 1 tablet by mouth in the morning. [facility] permethrin (ELIMITE) 5 % cream 04-29 00:00: 00 06-26 00:00 :00 No Apply neck to toes overnight once a week x 2 applicatio ns [facility] Adderall 30 mg tablet Take 1 tablet [...] 2 puffs as needed by inhalation route. [facility] Ordered Immunization Name [...] Completed Pediarix (dtap/hep B/ipv) 2005-05-11 00:00:00 Completed [facility] Hib-HbOC 2005-05-11 00:00:00 Completed Pneumococcal 7 Conjugate, [...] and W-135) conjugate vaccine (MCV4P) Unknown Completed [facility] MMR Unknown Completed [facility] Proquad (MMR/VARICELLA) Unknown Completed [facility] TDAP Unknown Completed [facility] Varicella (varivax)(chicken pox) Unknown Completed [facility] Pediarix (dtap/hep B/ipv) Unknown Completed [facility] DTaP, Unspecified Formulation Unknown Completed [facility] Influenza Virus Vaccine Nasal Unknown Completed [facility] HEPATITIS A Unknown Completed [facility] Hep B, Adol or Pedi Dosage Unknown Completed [facility] Hib-HbOC Unknown Completed [facility] Pneumococcal 7 Conjugate, PCV7 (Prevnar7) Unknown Completed [facility] IPV Unknown Completed [facility] Pediarix (dtap/hep B/ipv) Unknown Completed [facility] DTaP, Unspecified Formulation Unknown Completed [facility] Influenza Virus Vaccine Nasal Unknown Completed [facility] HEPATITIS A Unknown Completed [facility] Hep B, Adol or Pedi Dosage Unknown Completed [facility] Hib-HbOC Unknown Completed [facility] Meningococcal Polysaccharide (groups A, C, Y and W-135) conjugate vaccine (MCV4P) Unknown Completed [facility] MMR Unknown Completed [facility] Proquad (MMR/VARICELLA) Unknown Completed [facility] Pneumococcal 7 Conjugate, PCV7 (Prevnar7) Unknown Completed [facility] IPV Unknown Completed [facility] Pediarix (dtap/hep B/ipv) Unknown Completed [facility] TDAP Unknown Completed [facility] Varicella (varivax)(chicken pox) Unknown Completed [facility] Pediarix (dtap/hep B/ipv) Unknown Completed [facility] DTaP, Unspecified Formulation Unknown Completed [facility] DTaP, Unspecified Formulation Unknown Completed [facility] Influenza Virus Vaccine Nasal Unknown Completed [facility] HEPATITIS A Unknown Completed [facility] Hep B, Adol or Pedi Dosage Unknown Completed [facility] Hib-HbOC Unknown Completed [facility] Meningococcal Polysaccharide (groups A, C, Y and W-135) conjugate vaccine (MCV4P) Unknown Completed [facility] MMR Unknown Completed [facility] Proquad (MMR/VARICELLA) Unknown Completed [facility] Pneumococcal 7 Conjugate, PCV7 (Prevnar7) Unknown Completed [facility] IPV Unknown Completed [facility] TDAP Unknown Completed [facility] Varicella (varivax)(chicken pox) Unknown Completed [facility] Influenza Virus Vaccine Nasal Unknown Completed [facility] Pediarix (dtap/hep B/ipv) Unknown Completed [facility] DTaP, Unspecified Formulation Unknown Completed [facility] Influenza Virus Vaccine Nasal Unknown Completed [facility] HEPATITIS A Unknown Completed [facility] Hep B, Adol or Pedi Dosage Unknown Completed [facility] Hib-HbOC Unknown Completed [facility] Meningococcal Polysaccharide (groups A, C, Y and W-135) conjugate vaccine (MCV4P) Unknown Completed [facility] MMR Unknown Completed [facility] Proquad (MMR/VARICELLA) Unknown Completed [facility] Pneumococcal 7 Conjugate, PCV7 (Prevnar7) Unknown Completed [facility] IPV Unknown Completed [facility] TDAP Unknown Completed [facility] HEPATITIS A Unknown Completed [facility] Varicella (varivax)(chicken pox) Unknown Completed [facility] Pediarix (dtap/hep B/ipv) Unknown Completed [facility] DTaP, Unspecified Formulation Unknown Completed [facility] Influenza Virus Vaccine Nasal Unknown Completed [facility] HEPATITIS A [facility], Adol or Pedi Dosage Unknown Completed [facility] Hib-HbOC Unknown Completed [facility] Hep B, Adol or Pedi Dosage Unknown Completed [facility] Meningococcal Polysaccharide (groups A, C, Y and W-135) conjugate vaccine (MCV4P) Unknown Completed [facility] MMR Unknown Completed [facility] Proquad (MMR/VARICELLA) Unknown Completed [facility] Pneumococcal 7 Conjugate, PCV7 (Prevnar7) Unknown Completed [facility] IPV Unknown Completed [facility] TDAP Unknown Completed [facility] Varicella (varivax)(chicken pox) Unknown Completed [facility] Hib-HbOC Unknown Completed [facility] Pediarix (dtap/hep B/ipv) Unknown Completed [facility] DTaP, Unspecified Formulation Unknown Completed [facility] Influenza Virus Vaccine Nasal Unknown Completed [facility] HEPATITIS A Unknown Completed [facility] Hep B, Adol or Pedi Dosage Unknown Completed [facility] Hib-HbOC Unknown Completed [facility] Meningococcal Polysaccharide (groups A, C, Y and W-135) conjugate vaccine (MCV4P) Unknown Completed [facility] MMR Unknown Completed [facility] Proquad (MMR/VARICELLA) Unknown Completed [facility] Pneumococcal 7 Conjugate, PCV7 (Prevnar7) Unknown Completed [facility] IPV Unknown Completed [facility] TDAP Unknown Completed [facility] Varicella (varivax)(chicken pox) Unknown Completed [facility] Pediarix (dtap/hep B/ipv) Unknown Completed [facility] DTaP, Unspecified Formulation Unknown Completed [facility] Influenza, Live, Trivalent, Intranasal (FLUMIST) Unknown Completed [facility] HEPATITIS A Unknown Completed [facility] Hep B, Adol or Pedi Dosage Unknown Completed [facility] Hib-HbOC Unknown Completed [facility] Meningococcal Polysaccharide (groups A, C, Y and W-135) conjugate vaccine (MCV4P) Unknown Completed [facility] MMR Unknown Completed [facility] Proquad (MMR/VARICELLA) Unknown Completed [facility] Pneumococcal 7 Conjugate, PCV7 (Prevnar7) Unknown Completed [facility] Meningococcal Polysaccharide (groups A, C, Y and W-135) conjugate vaccine (MCV4P) Unknown Completed [facility] IPV Unknown Completed [facility] TDAP Unknown Completed [facility] Varicella (varivax)(chicken pox) Unknown Completed [facility] MMR Unknown Completed [facility] Proquad (MMR/VARICELLA) Unknown Completed [facility] Pneumococcal 7 Conjugate, PCV7 (Prevnar7) Unknown Completed [facility] IPV Unknown Completed [facility] TDAP Unknown Completed [facility] Varicella (varivax)(chicken pox) Unknown Completed [facility] Vital Signs Vital Name Observation Time Observation Value Comments S ource Systolic blood pressure 2024-05-29 19:09:00 129 mm[Hg] [facility] Diastolic blood pressure 2024-05-29 19:09:00 80 mm[Hg] [facility] Heart rate 2024-05-29 19:09:00 78 /min [facility] Respiratory rate 2024-05-29 19:09:00 20 /min [facility] Body height 2024-05-29 19:09:00 182.9 cm [facility] Body weight 2024-05-29 19:09:00 88.179 kg [facility] BMI 2024-05-29 19:09:00 26.37 kg/m2 [facility] Oxygen saturation in Arterial blood by Pulse oximetry 2024-05-29 19:09:00 98 /min [facility] Body height 2024-05-14 17:35:00 182.9 cm [facility] Systolic blood pressure 2024-05-08 20:42:00 143 mm[Hg] [facility] Diastolic blood pressure 2024-05-08 20:42:00 87 mm[Hg] [facility] Heart rate 2024-05-08 20:42:00 85 /min [facility] Respiratory rate 2024-05-08 20:42:00 15 /min [facility] Body height 2024-05-08 20:42:00 182.9 cm [facility] Body weight 2024-05-08 20:42:00 90.861 kg [facility] BMI 2024-05-08 20:42:00 27.17 kg/m2 [facility] Systolic blood pressure 2024-05-06 03:00:51 150 mm[Hg] [facility] Diastolic blood pressure 2024-05-06 03:00:51 85 mm[Hg] [facility] Heart rate 2024-05-06 03:00:51 93 /min [facility] Body temperature 2024-05-06 03:00:51 36.89 Erika [facility] Respiratory rate 2024-05-06 03:00:51 18 /min [facility] Oxygen saturation in Arterial blood by Pulse oximetry 2024-05-06 03:00:51 98 /min [facility] Body height 2024-05-06 01:34:00 182.9 cm [facility] Body weight 2024-05-06 01:34:00 89.812 kg [facility] BMI 2024-05-06 01:34:00 26.85 kg/m2 [facility] Systolic blood pressure 2023-10-23 21:24:00 132 mm[Hg] [facility] Diastolic blood pressure 2023-10-23 21:24:00 83 mm[Hg] [facility] Heart rate 2023-10-23 21:18:00 95 /min [facility] Body temperature 2023-10-23 21:18:00 36.67 Erika [facility] Respiratory rate 2023-10-23 21:18:00 18 /min [facility] Body height 2023-10-23 21:18:00 175.9 cm [facility] Body weight 2023-10-23 21:18:00 101.152 kg [facility] BMI 2023-10-23 21:18:00 32.69 kg/m2 [facility] Body mass index (BMI) [Percentile] Per age and sex 2023-10-23 21:18:00 96.75 % [facility] Oxygen saturation in Arterial blood by Pulse oximetry 2023-10-23 21:18:00 98 /min [facility] Height 2023-07-18 00:00:00 71 [in_i] [facility] BP Diastolic 2023-07-18 00:00:00 64 mm[Hg] Petros [facility] BMI (Body Mass Index) 2023-07-18 00:00:00 31 kg/m2 [facility] BP Systolic 2023-07-18 00:00:00 122 mm[Hg] [facility] Body Weight 2023-07-18 00:00:00 222 [lb_av] Petros [facility] Systolic blood pressure 2023-06-27 21:34:00 135 mm[Hg] [facility] Diastolic blood pressure 2023-06-27 21:34:00 74 mm[Hg] [facility] Heart rate 2023-06-27 21:34:00 76 /min [facility] Body temperature 2023-06-27 21:34:00 36.61 Erika [facility] Respiratory rate 2023-06-27 21:34:00 19 /min [facility] Body height 2023-06-27 21:34:00 178.5 cm [facility] Body weight 2023-06-27 21:34:00 101.209 kg [facility] BMI 2023-06-27 21:34:00 31.76 kg/m2 [facility] Body mass index (BMI) [Percentile] Per age and sex 2023-06-27 21:34:00 96.40 % [facility] Oxygen saturation in Arterial blood by Pulse oximetry 2023-06-27 21:34:00 97 /min [facility] Procedures Procedure Date / Time Performed Performing Clinicia n Source HB ECG ROUTINE & RHYTHM STRIP 2024-05-29 19:14:53 Vincent Townsend [facility] NERVE BLOCK 2024-05-01 19:00:50 Tashi Chambers [facility] INTUBATION 2024-04-24 15:54:00 Koko Hylton [facility] Encounters Start Date/Time End Date/Time Encounter Type Admission Type Attending Clinicians Care Facility Care Department Encounter ID Source 2024-06-21 08:00:00 2024-06-21 08:00:00 Outpatient R VINCENT TOWNSEND [facility] [id number] [facility] 2024-06-10 15:15:00 2024-06-10 15:15:00 Outpatient R [facility] [id number] [facility] 2024-05-30 14:30:00 2024-05-30 14:30:00 Outpatient R VINCENT TOWNSEND [facility] [id number] [facility] 2024-05-29 00:00:00 2024-05-30 12:40:52 Telephone GarciaLeonardo [facility] 1..114 350.1.13.10 4.2.7.2.686 [id number] [facility] 2024-05-29 14:00:00 2024-05-29 14:55:12 Outpatient R VINCENT TOWNSEND [facility] [id number] [facility] 2024-05-29 14:00:00 2024-05-29 14:55:12 Office Visit Vincent Townsend [facility] 1..114 350.1.13.10 4.2.7.2.686 [id number] [facility] 2024-05-29 13:00:00 2024-05-29 13:45:00 Ancillary Visit Julieta Maloney Craig L Medrano, Angelica R [facility] 1..114 350.1.13.10 4.2.7.2.686 [id number] [facility] 2024-05-29 00:00:00 2024-05-29 11:02:04 Telephone GarciaLeonardo escamilla [facility] 1..114 350.1.13.10 4.2.7.2.686 [id number] [facility] 2024-05-28 00:00:00 2024-05-28 13:37:18 Refill Leonardo Garcia [facility] 1.2840.114 350.1.13.10 4.2.7.2.686 [id number] [facility] 2024-05-27 14:30:00 2024-05-27 14:30:00 Outpatient R GRETA CUMMINGS [facility] [id number] [facility] 2024-05-23 00:00:00 2024-05-23 12:46:01 Patient Secure Msg Leonardo Garcia [facility] 1.2840.114 350.1.13.10 4.2.7.2.686 [id number] [facility] 2024-05-22 13:00:00 2024-05-22 13:45:00 Ancillary Visit Julieta Maloney Craig L Medrano, Angelica R [facility] 1.2840.114 350.1.13.10 4.2.7.2.686 [id number] [facility] 2024-05-22 00:00:00 2024-05-22 13:08:53 Telephone GarciaLeonardo escamilla [facility] 1.2840.114 350.1.13.10 4.2.7.2.686 [id number] [facility] 2024-05-20 00:00:00 2024-05-20 10:03:12 Telephone GarciaLeonardo escamilla [facility] 1.2840.114 350.1.13.10 4.2.7.2.686 [id number] [facility] 2024-05-17 00:00:00 2024-05-20 10:02:25 Patient Secure Msg Leonardo Garcia [facility] 1.2840.114 350.1.13.10 4.2.7.2.686 [id number] [facility] 2024-05-15 13:00:00 2024-05-15 13:58:29 Ancillary Visit Julieta Maloney Craig L Medrano, Angelica R [facility] 1.2840.114 350.1.13.10 4.2.7.2.686 [id number] [facility] 2024-05-14 00:00:00 2024-05-15 13:57:55 Telephone Leonardo Garcia [facility] 1.2840.114 350.1.13.10 4.2.7.2.686 [id number] [facility] 2024-05-14 12:32:08 2024-05-14 23:59:00 Outpatient R LEONARDO GARCIA MARK [facility] [id number] [facility] 2024-05-14 12:32:08 2024-05-14 23:59:00 Hospital Encounter Leonardo Garcia [facility] 1.2840.114 350.1.13.10 4.2.7.2.686 [id number] [facility] 2024-05-14 13:00:00 2024-05-14 13:15:00 Office Visit Leonardo Garcia [facility] 1.2840.114 350.1.13.10 4.2.7.2.686 [id number] [facility] 2024-05-13 00:00:00 2024-05-13 16:42:16 Telephone Leonardo Garcia [facility] 1.2840.114 350.1.13.10 4.2.7.2.686 [id number] [facility] 2024-05-13 14:30:00 2024-05-13 15:15:00 Ancillary Visit Julieta Maloney Craig L Medrano, Angelica [facility] 1.2840.114 350.1.13.10 4.2.7.2.686 [id number] [facility] 2024-05-12 00:00:00 2024-05-12 09:26:27 Abstract Leonardo Garcia [facility] 1.20.114 350.1.13.10 4.2.7.2.686 [id number] [facility] 2024-05-08 00:00:00 2024-05-09 09:19:02 Telephone Leonardo Garcia [facility] 1.20.114 350.1.13.10 4.2.7.2.686 [id number] [facility] 2024-05-08 15:40:00 2024-05-08 16:05:31 Outpatient R GUTIERREZ WOLFE [facility] [id number] [facility] 2024-05-08 15:40:00 2024-05-08 16:05:31 Office Visit Gutierrez Wolfe [facility] 1..114 350.1.13.10 4.2.7.2.686 [id number] [facility] 2024-05-08 13:45:00 2024-05-08 15:09:58 Ancillary Visit Julieta Maloney Craig L Medrano, Angelica R [facility] 1.2.114 350.1.13.10 4.2.7.2.686 [id number] [facility] 2024-05-06 14:30:00 2024-05-06 15:37:58 Outpatient R GRETA CUMMINGS [facility] [id number] [facility] 2024-05-06 14:30:00 2024-05-06 15:37:58 Ancillary Visit Julieta Maloney Craig L Medrano, Angelica [facility] 1.114 350.1.13.10 4.2.7.2.686 [id number] [facility] 2024-05-05 20:38:00 2024-05-05 22:13:00 Emergency X ALEJANDRO LORA [facility] [id number] [facility] 2024-05-05 20:38:00 2024-05-05 22:13:00 Emergency Alejandro Lora [facility] 1..114 350.1.13.10 4.2.7.2.686 [id number] [facility] 2024-05-03 00:00:00 2024-05-03 22:51:20 Nurse Triage Piedad Trujillo Rebecca L [facility] 1..114 350.1.13.10 4.2.7.2.686 [id number] [facility] 2024-05-03 13:30:00 2024-05-03 13:30:00 Outpatient VINCENT TRAN [facility] [id number] [facility] 2024-05-02 00:00:00 2024-05-03 10:14:31 Telephone Leonardo Garcia [facility] 1.114 350.1.13.10 4.2.7.2.686 [id number] [facility] 2024-05-02 00:00:00 2024-05-02 14:52:49 Telephone GarciaLeonardo [facility] 1.2.840.114 350.1.13.10 4.2.7.2.686 [id number] [facility] 2024-05-01 00:00:00 2024-05-02 09:02:21 Telephone GarciaLeonardo [facility] 1.2.840.114 350.1.13.10 4.2.7.2.686 [id number] [facility] 2024-04-29 13:45:00 2024-04-29 16:05:47 Ancillary Visit Julieta Maloney Craig L Medrano, Angelica R [facility] 1.2.840.114 350.1.13.10 4.2.7.2.686 [id number] [facility] 2024-04-29 00:00:00 2024-04-29 15:43:11 Telephone GarciaLeonardo [facility] 1.2.840.114 350.1.13.10 4.2.7.2.686 [id number] [facility] 2024-04-29 00:00:00 2024-04-29 10:03:07 Transition of Care Pooja Obando Kristi L [facility] 1.2.840.114 350.1.13.10 4.2.7.2.686 [id number] [facility] 2024-04-28 00:00:00 2024-04-28 13:33:19 Nurse Triage Sarah Davison Priscilla [facility]) 1.2.840.114 350.1.13.10 4.2.7.2.686 [id number] [facility] 2024-04-26 00:00:00 2024-04-26 21:16:27 Nurse Triage Key Razo Katelyn D [facility]) 1.2.0.114 350.1.13.10 4.2.7.2.686 [id number] [facility] 2024-04-26 00:00:00 2024-04-26 20:39:23 Telephone Leonardo Garcia [facility] ([facility]) 1.2840.114 350.1.13.10 4.2.7.2.686 [id number] [facility] 2024-04-24 05:54:00 2024-04-25 18:00:00 Inpatient T LEONARDO GARCIA MARK [facility] [id number] [facility] 2024-04-25 11:00:00 2024-04-25 11:00:00 Outpatient LEENA MANCIA [facility] [id number] [facility] 2024-04-24 10:44:00 2024-04-24 13:41:00 Anesthesia Event Koko Hylton Stefanie [facility] ([place] 1.2.114 350.1.13.10 4.2.7.2.686 [id number] [facility] 2024-04-23 23:19:00 2024-04-24 04:45:00 Emergency X KIRSTIN SENIOR JOSHUA [facility] [id number] [facility] 2024-03-27 16:20:00 2024-03-27 16:20:00 Outpatient NADEGE FARRAR LESLEY [facility] [id number] [facility] 2024-03-08 00:00:00 2024-03-08 16:18:47 Gutierrez Tran [facility] 1.20.114 350.1.13.10 4.2.7.2.686 [id number] [facility] 2024-02-29 15:00:00 2024-02-29 15:00:00 Outpatient LEENA MANCIA [facility] [id number] [facility] 2024-02-13 00:00:00 2024-02-13 16:54:42 Gutierrez Trna [facility] 1.2.840.114 350.1.13.10 4.2.7.2.686 [id number] [facility] 2024-02-13 00:00:00 2024-02-13 15:40:43 Telephone Rosalie acosta Leena [facility] 1.2.840.114 350.1.13.10 4.2.7.2.686 [id number] [facility] 2024-01-02 14:00:00 2024-01-02 14:00:00 Outpatient GUTIERREZ DISLA [facility] [id number] [facility] 2023-12-15 00:00:00 2023-12-15 14:39:25 Gutierrez Tran [facility] 1.2.840.114 350.1.13.10 4.2.7.2.686 [id number] [facility] 2023-11-23 11:00:00 2023-11-23 11:00:00 Outpatient KALIA CRAWFORD [facility] [id number] [facility] 2023-11-06 13:40:00 2023-11-06 13:40:00 Outpatient LEENA MANCIA [facility] [id number] [facility] 2023-11-01 14:00:00 2023-11-01 14:00:00 Outpatient SRIDHAR GRACIA [facility] [id number] [facility] 2023-10-31 00:00:00 2023-10-31 09:22:44 Telephone Gutierrez Wolfe [facility] 1.2.840.114 350.1.13.10 4.2.7.2.686 [id number] [facility] 2023-10-23 16:00:00 2023-10-23 16:50:30 Outpatient R ROSALIE ACOSTA [facility] [id number] [facility] 2023-10-23 16:00:00 2023-10-23 16:50:30 Office Visit Rosalie acosta [facility] 1.2.840.114 350.1.13.10 4.2.7.2.686 [id number] [facility] 2023-10-14 00:00:00 2023-10-16 08:44:45 Telephone Gutierrez Wolfe [facility] 1.2.840.114 350.1.13.10 4.2.7.2.686 [id number] [facility] 2023-09-15 09:40:00 2023-09-15 09:40:00 Outpatient R GUTIERREZ WOLFE [facility] [id number] [facility] 2023-09-06 13:40:00 2023-09-06 13:40:00 Outpatient GUTIERREZ DISLA [facility] [id number] [facility] 2023-08-28 00:00:00 2023-08-29 10:02:53 Telephone Gutierrez Wolfe [facility] 1.2.840.114 350.1.13.10 4.2.7.2.686 [id number] [facility] 2023-07-18 00:00:00 2023-07-18 00:00:00 Anne-Marie Womack MD: [address] , [address], [place] [address] , Ph. [facility] [id number] [facility] Family Sarah kessler 2023-07-03 00:00:00 2023-07-05 08:30:31 [facility] 1.2.840.114 350.1.13.10 4.2.7.2.686 [id number] [facility] 2023-06-29 00:00:00 2023-06-29 15:06:58 [facility] 1.2.840.114 350.1.13.10 4.2.7.2.686 [id number] [facility] 2023-06-27 16:20:00 2023-06-27 16:58:32 Outpatient R AIDEN [facility] [id number] [facility] 2023-06-27 16:20:00 2023-06-27 16:58:32 [facility] 1.2.840.114 350.1.13.10 4.2.7.2.686 [id number] [facility] 2023-06-23 00:00:00 2023-06-27 08:55:[address] [facility] 1.2.840.114 350.1.13.10 4.2.7.2.686 [id number] [facility] 2023-06-20 00:00:00 2023-06-20 10:38:47 [facility] 1.2.840.114 350.1.13.10 4.2.7.2.686 [id number] [facility] 2023-05-19 00:00:00 2023-05-19 00:00:00 Outpatient Ginger STANLEY VFP VFP [id number] [facility] Sarah kessler 2020-10-05 18:22:48 2020-10-05 18:32:48 Laboratory Only Only, Ang Db Test Lore Navarro [facility] 1.2.840.114 350.1.13.10 4.2.7.2.686 [id number] [facility] 2020-10-05 18:25:00 2020-10-05 18:25:00 Outpatient R LORE NAVARRO [facility] [id number] [facility] Results Test Description Test Time Test Comments Results Result Comments Source Nerve Block 19:00:50 Tashi Chambers MD ? ? 05/01/2024 ?2:02 PM Nerve Block Procedure: Femoral Nerve Block Patient Location: HoldingLaterality: LeftPost Op Pain: Start Time: 04/24/2024 2:01 PMEnd Time: 04/24/2024 2:01 PMPost Op Pain Management requested by surgeon per surgical: Progress NoteAnesthesiologist: Ally Scott MDResident/INTERPRETER: Tashi Chambers MDPerformed by: resident/CRNAPreanesthetic timeout completed prior to procedure: patient identified,IV checked, site marked, risks and benefits discussed, surgical consent, monitors and equipment checked, pre-op evaluation, timeout performedInformed consent obtained patient wishes to proceed: yesPatient Position: supineSterile Prep/Drape: YesMonitoring: continuous pulse ox, blood pressure and ECGInjection Technique: single-shotNerve Block Needle Type: pajunk.Needle Gauge: 22 GNeedle 2 length (in): 80mm.Number of Attempts: 1Technique: Ultrasound guided, Negative aspiration and Intermittent aspiration during injectionSensory Effect: AdequateEvents: Patient tolerated procedure well and Negative Aspiration Medications Given: Regional:Bupiv 0.25% 30 mLEPI 1:200K [facility] Intubation 15:54:00 Koko Hylton MD ? ? 04/24/2024 11:33 AMIntubationDate/Time: 04/24/2024 10:54 AMUrgency: elective Airway not difficult General Information and Staff Patient location during procedure: ORPerformed: resident/INTERPRETER Performed by: Koko Hylton MDAuthorized by: Daria Sherman MD ? Indications and Patient ConditionIndications for airway management: anesthesiaSpontaneous ventilation: presentSedation level: deepPreoxygenated: yesPatient position: sniffingMILS maintained throughoutMask difficulty assessment: 1 - vent by mask Final Airway DetailsFinal airway type: endotracheal airway Successful airway: ETTCuffed: yes Successful intubation technique: direct laryngoscopyEndotracheal tube insertion site: oralBlade: MacintoshBlade size: #4ETT size (mm): 7.5Cormack-Lehane Classification: grade I - full view of glottisPlacement verified by: chest auscultation and capnometry Measured from: teethETT to teeth (cm): 23Number of attempts at approach: 1Ventilation between attempts: noneNumber of other approaches attempted: 0 Additional CommentsSmooth, atraumatic, dentition and lips unchanged from pre-op. [facility] Procedure Notes Date/Time Note Provider Source 2024-05-01 14:00:50 Associated Order(s): Nerve Block Images from the original note were not included. Nerve Block Procedure: Femoral Nerve Block Patient Location: Holding Laterality: Left Post Op Pain: Start Time: 04/24/2024 2:01 PM End Time: 04/24/2024 2:01 PM Post Op Pain Management requested by surgeon per surgical: Progress Note Anesthesiologist: Ally Scott MD Resident/INTERPRETER: Tashi Chambers MDPerformed by: resident/INTERPRETER Preanesthetic timeout completed prior to procedure: patient identified,IV checked, site marked, risks and benefits discussed, surgical consent, monitors and equipment checked, pre-op evaluation, timeout performed Informed consent obtained patient wishes to proceed: yes Patient Position: supine Sterile Prep/Drape: Yes Monitoring: continuous pulse ox, blood pressure and ECG Injection Technique: single-shot Nerve Block Needle Type: pajunk. Needle Gauge: 22 G Needle 2 length (in): 80mm. Number of Attempts: 1 Technique: Ultrasound guided, Negative aspiration and Intermittent aspiration during injection Sensory Effect: Adequate Events: Patient tolerated procedure well and Negative Aspiration Medications Given: Regional: Bupiv 0.25% 30 mL EPI 1:200K ANESTHESIOLOGY [facility] 2024-04-24 11:24:59 Associated Order(s): Intubation Intubation Date/Time: 04/24/2024 10:54 AM Urgency: elective Airway not difficult General Information and Staff Patient location during procedure: OR Performed: resident/INTERPRETER Performed by: Koko Hylton MD Authorized by: Daria Sherman MD Indications and Patient Condition Indications for airway management: anesthesia Spontaneous ventilation: present Sedation level: deep Preoxygenated: yes Patient position: sniffing MILS maintained throughout Mask difficulty assessment: 1 - vent by mask Final Airway Details Final airway type: endotracheal airway Successful airway: ETT Cuffed: yes Successful intubation technique: direct laryngoscopy Endotracheal tube insertion site: oral Blade: Lynn Blade size: #4 ETT size (mm): 7.5 Cormack-Lehane Classification: grade I - full view of glottis Placement verified by: chest auscultation and capnometry Measured from: teeth ETT to teeth (cm): 23 Number of attempts at approach: 1 Ventilation between attempts: none Number of other approaches attempted: 0 Additional Comments Smooth, atraumatic, dentition and lips unchanged from pre-op. ANESTHESIOLOGY [facility] Notes Date/Time Note Provider Source 2024-05-30 12:34:14 Returned call and spoke with mother Message from doctor given to mother Mother then asked if patient can get a xray of his knee Informed mother that xray was performed at last visit on 05/14/2024 Informed that patient will have some pain/discomfort while continuing to heal and participating in therapy Medication was sent to pharmacy yesterday Fiona Anne RN [facility] 2024-05-30 02:25:44 Fiona, Please let him know that I expect that he should have some knee pain since we fixed his femur thru his knee. No indication for MRI Thx maF ORT-ORTHOPAEDIC SURGERY STAFF [facility] 2024-05-29 19:10:52 Fiona, We dropped him down to tramadol. When they call please explain rationale. Thx MAF [facility] 2024-05-29 13:30:20 Jose Woodall is a 18 year old malemom calling due to pt having knee pain for past 3 day. Requesting if they can get MRI order done and to be sent to [facility] . Please call mom at [phone] Deborah Nance [facility] 2024-05-29 10:54:48 Robaxin and Tramadol refilled [facility] 2024-05-29 10:39:35 Per last visit, patient was informed that pain medication was going to start being tapered down Pain medication refill request routed to Dr Fiona Anne RN [facility] 2024-05-29 10:16:07 Jose Woodall is a 18 year old male Mother of the patient requesting to speak with a nurse regarding the patient's HYDROcodone-acetaminophen 7.5-325 mg per tablet. Wanting to know when they can get more medication. Please advise. Jose M Oneill [facility] 2024-05-28 17:02:07 Addended by: FIONA ANNE RN on: 05/28/2024 05:02 PM Modules accepted: Orders [facility] 2024-05-28 16:58:42 Per last visit, patient was informed that pain medication was going to start being tapered down Pain medication refill request routed to Dr [facility] 2024-05-28 13:35:37 Patient is requesting refill on Dyess Dyess was last refilled on 05/22/2024 Per doctor, too soon for refill Fiona Anne RN [facility] 2024-05-28 11:42:09 Jose Woodall is a 18 year old male Mother of Patient is requesting a refill of the HYDROcodone-acetaminophen 7.5-325 mg. Please send prescription to [facility] in [place]. Please assist. Marian Reyna [facility] 2024-05-22 12:34:40 DOS 04/24/2024- left femur IMN Dyess 7.5/325mg last filled on 05/15/24 tabs Mother's request for Dyess refill sent to the doctor Fiona Anne RN [facility] 2024-05-22 12:27:26 Jose Woodall is a 18 year old male Mom calling to request Hydrocodon refill surg 04/24 . Completley out of medication . Deborah Nance [facility] 2024-05-20 10:02:36 Form was sent via [employer] on 05/17/2024 Informed mother she will be contacted when form has been completed and signed by the doctor Fiona Anne RN [facility] 2024-05-20 09:27:58 Jose Woodall is a 18 year old male Delmy, mother of pt is calling wanting to know the status on the forms they dropped off for the provider to sign as it is for their insurance and they are needing it as soon as possible Please advise at [phone] (home) Savana Jeronimo [facility] 2024-05-17 14:39:53 Pts mom is calling to get the status of pts form being filled out. [phone] (home) Please advise when completed. Darlin Ball [facility] 2024-05-15 12:45:40 28 tabs Dyess 7.5-325 mg sent to pharmacy. This cannot be refilled until 05/22/24. [facility] 2024-05-15 11:59:47 Mother called again regarding refill on Hydrocodone. Informed mother that it was too soon to refill medication yesterday Per doctor, medication will be sent to the pharmacy today. Informed mother that doctor will probably send in a lower dose of Hydrocodone to pharmacy Mother voiced understanding and had no further questions or concerns at this time Fiona Anne RN [facility] 2024-05-15 11:48:50 Jose Woodall is a 18 year old male Mom calling to check on status of refill. Please call with update Ariella Dominique [facility] 2024-05-15 11:12:35 Pts mom Delmy is calling to check the status of the pts hydrocodone prescription. Mom states the pt was seen in clinic on 05-14-24 and that the provider was going to send the prescription to the pharmacy. Mom states the pharmacy still hasn't received the prescription. Mom would like a call back from the clinic with updates, thank you! Mom is wanting this request completed today. [id number] [place], [place] - [address] AT [facility] [address] [facility] [id number] Elian Irving [facility] 2024-05-14 16:10:46 It appears that the last prescription was sent on 05/08/24. We can refill it tomorrow since we need to wait at least 7 days. [facility] 2024-05-14 14:57:39 Jose Woodall is a 18 year old male Mother of patient is calling, stating that the pharmacy never received the patient's prescription of HYDROcodone-acetaminophen 10-325 mg tablet . Mother is requesting if provider will resend medication to pharmacy. Please advise. [id number] [place], [place] - [address] AT [facility] [employer] Fermin Vick [facility] 2024-05-13 16:40:54 Note reviewed. Mother of pt contacted, mother states pt will need refill of norco. Mother advised, unable to refill norco due to Rx from 05/08/24-05/15/24. Mother of pt advised to keep f/u appt with Dr. Garcia as scheduled on 05/14/24. Mother/pt to discuss med refill with Dr. Garcia. Mother of pt verbalized understanding and agrees. Shilpi Westbrook RN [facility] 2024-05-13 13:38:57 Pts mom is calling to check the status of this refill request. Pts mom states the pt is out of his Hydrocodone and is asking for this refill to be sent today. Please advise the pts mom with this request. Elian Irving [facility] 2024-05-13 11:18:57 Jose Woodall is a 18 year old male Patients mother called stating her son is having leg pain and asked if Hydrocodone can be called in. Please contact [phone] (home) [id number] [place] [address] AT [facility] Aroldo Alfonso [facility] 2024-05-09 06:40:40 We are unable to refill the medication yet as it has only been 6 days since the last Dyess prescription was sent in. [facility] 2024-05-08 15:21:30 Left femur IMN on 04/24/2024 Mother calling for a refill on medication again Medication was last sent to the pharmacy on May 03 Pain medication refill request sent to doctor Fiona Anne RN [facility] 2024-05-08 13:12:16 Jose Woodall is a 18 year old male Mom requesting HYDROcodone-acetaminophen 10-325 mg tablet Deborah Nance [facility] 2024-05-05 22:12:20 Pt given printed and verbal discharge instructions regarding dressing change. Encouraged hydration, Wound care instructions given. Pt verbalized understanding of instructions, pt awake alert oriented, resp reg unlabored, skin w/d, color appropriate for race, moves all ext well,pt encouraged to follow up with pcp. Advised to seek medical attention for new/prolonged/worsening of symptoms, Symptoms improved Awake, alert oriented, resp reg unlabored, skin w/d, pt leaving amb with walker, in no apparent distress, accompanied by mother. Paige Joyner RN [facility] 2024-05-05 20:31:56 Pt. Presents to ED ambulatory with walker with C/O of post-op bandage change; pt. Mother reports she called [facility] & they instructed pt. To come to ED to change dressings; pt. Had left femur fx from 04/24/2024; no abnormal bleeding to dressings per pt. Radha Stanley RN [facility] 2024-05-05 20:28:00 Images from the original note were not included. EMERGENCY DEPARTMENT ENCOUNTER [facility] Patient Name: Jose Woodall Date of : 2005 18 year old Exam Room:TR8/TR8 Primary Care Physician: Gutierrez Wolfe [facility] Patient Escorted by: Family [5] Mode of Arrival: Personal means [1] EMS Treatment Prior to ED Arrival: ED Events Date/Time Event User Comments 05/05/242037 Medical Screening Begins ALEJANDRO LORA MD -- 05/05/242037 First Provider Evaluation ALEJANDRO LORA MD -- Chief Complaint Chief Complaint Patient presents with Other Post-op bandage change ED Triage Notes Radha Stanley RN 05/05/2024 20:34 Pt. Presents to ED ambulatory with walker with C/O of post-op bandage change; pt. Mother reports she called [facility] & they instructed pt. To come to ED to change dressings; pt. Had left femur fx from 04/24/2024; no abnormal bleeding to dressings per pt. HPI History provided by: Patient Illness Location: RLE Severity: Mild Timing: Constant Context: Need dressing change Relieved by: Nothing Worsened by: Nothing Associated symptoms: no abdominal pain, no chest pain, no cough, no fatigue, no fever, no headaches, no nausea, no shortness of breath, no vomiting and no wheezing Past Medical History / Immunizations No past medical history on file. Past Surgical History Past Surgical History: Procedure Laterality Date FEMUR INTRAMEDULLARY NAILING Left 04/24/2024 Surgeon: Leonardo Garcia MD; Location: [facility] Allergies No Known Allergies Social History Tobacco Use Never Review of Systems Review of Systems Constitutional: Negative. Negative for chills, fatigue, fever and unexpected weight change. HENT: Negative. Eyes: Negative. Negative for discharge and itching. Respiratory: Negative. Negative for cough, chest tightness, shortness of breath and wheezing. Cardiovascular: Negative. Negative for chest pain and palpitations. Gastrointestinal: Negative. Negative for abdominal distention, abdominal pain, nausea and vomiting. Genitourinary: Negative. Negative for dysuria, urgency, frequency and flank pain. Musculoskeletal: Negative. Skin: Negative. Negative for color change, pallor and wound. Neurological: Negative. Negative for dizziness, syncope, light-headedness and headaches. Psychiatric/Behavioral: Negative. Negative for agitation and behavioral problems. All other systems reviewed and are negative. Endocrine: Endocrine negative Physical Exam ED Triage Vitals [05/05/242033] Weight 89.8 kg (198 lb) Actual or estimated Height 1.829 m (6') BP (!) 156/84 Pulse 108 Resp 20 Temp 37.1 ?C (98.8 ?F) Temp source Oral SpO2 98 % Measured on Room air Physical Exam Vitals reviewed. Constitutional: Appearance: He is well-developed. HENT: Head: Normocephalic and atraumatic. Nose: Nose normal. Eyes: Conjunctiva/sclera: Conjunctivae normal. Neck: Trachea: No tracheal deviation. Musculoskeletal: General: Normal range of motion. Cervical back: Normal range of motion and neck supple. Legs: Skin: General: Skin is warm and dry. Neurological: Mental Status: He is alert and oriented to person, place, and time. Cranial Nerves: No cranial nerve deficit. Sensory: No sensory deficit. Psychiatric: Behavior: Behavior normal. Labs Lab Results - No data to display Imaging No orders to display Orders and Treatments No orders of the defined types were placed in this encounter. No orders of the defined types were placed in this encounter. Procedures Procedures MDM Patient was evaluated for an emergency medical condition related to Other (Post-op bandage change) Labs:were not ordered. Abnormal Labs Reviewed - No data to display Imaging:Was not ordered Diagnosis/Impression as of 05/05/242201 Dressing change Medical Decision Making Pulse Oximetry: is not hypoxic. Interpreted. Reassessment:stable Communication with senior management consultant: None. Limitations

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
[2024-06-03] MEDS ORDERED: IBUPROFEN 400 MG TAB ONE (00:58)
[2024-06-03] MEDS ORDERED: HYDROCODONE/APAP 5/325 MG TAB ONE (00:59)
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
[2024-06-04 10:30] VITALS: BP 143/87; TEMP 97.9; O2SAT 100
== END 2024-06-03 01:02 | disposition home or self-care (01) ==
LOC: ER 23:26
DX: M79.605 Pain in left leg (principal)
CPT/HCPCS: 99283

== ENCOUNTER 2024-06-18 03:36 | Emergency (ER) | payer OTHER ==
--- OUTSIDE RECORDS SUMMARY | 2024-06-18 03:41 | XMS REPORT | Continuity of Care Document ---
Author Name Unknown Address [address] [facility] [place] [address] [facility] Address [address] [facility] [place] [address] Care Team Providers Care Chief Legal Officer Name Role Phone GUTIERREZ WOLFE Primary Care Physician Unavailab GUTIERREZ Jorge Attending Clinician Unavailable LEONARDO GARCIA Attending Clinician Unavailable LEONARDO GARCIA Attending Clinician Unavailable VINCENT TOWNSEND K.H. Attending Clinician Unavailchidi Maloney PT, Julieta R Attending Clinician UnaGRETA España Attending Clinician UnavailGRETA Manley Attending Clinician UnavailLeonardo Junior MD Attending Clinician [phone] Paul MARCOS, Vincent K.H. Attending Clinician [phone] Greta Cummings MD Attending Clinician [phone] Gutierrez Wolfe MD Attending Clinician [phone] ALEJANDRO LORA Attending Clinician Unavailable ALEJANDRO LORA Attending Clinician Unavailable Alejandro Lora MD Attending Clinician [phone] Ronnie RN, Piedad L Attending Clinician Unava KALIA Kam Attending Clinician Jade Obando RN, Pooja Hernandez Attending Clinician Unavail deon Davison RN, Sarah Attending Clinician Key Arteaga RN Attending Clinician Unavailab LEENA Delgado Attending Clinician Koko Hairston MD Attending Clinician [phone] Daria Sherman MD Attending Clinician [phone] KIRSTIN SENIOR Attending Clinician Unavailable KIRSTIN SENIOR Attending Clinician Unavailable NADEGE CRUM Attending Clinician Unavailable NADEGE CRUM Attending Clinician Unavailable Reji MARCOS, Leena Attending Clinician [phone] SRIDHAR KING Attending Clinician Unavaila olman Wolfe MD, Gutierrez Attending Clinician [phone] Ty Attending Clinician Unavailable Only, Ang Db Test Attending Clinician UnavailLore Iraheta MD Attending Clinician [phone] LORE MENDOZA Attending Clinician Unavailable LEONARDO GARCIA Admitting Clinician Unavailable Ty Admitting Clinician Unavailable Payers Payer Name Policy Type Policy Number Effective Date Expirati on Date Source [place] [employer] [id number] 2023 00:00:00 [facility] [id number] Problems Condition Name Condition Details Condition Category Status Onset Date Resolution Date Last Treatment Date Treating Clinician Comments Source Trauma Trauma Disease Active 04-24 00:00: 00 [facility] Attention deficit hyperactiv ity disorder, [...] active problems No known active problems Disease [facility] Allergies, Adverse Reactions, Alerts Allergy Name Allergy Type Status Severity Reaction(s) Onset Date Inactive Date Treating Clinician Comments Source NO KNOWN ALLERGIE S Drug Class Active [facility] Social History Social Habit Start Date Stop Date Quantity Comments Source [facility]2 (event) Not sure [facility] Alcoholic beverage intake 2024-05-29 00:00:00 2024-05-29 00:00:00 [facility] History of Social function 2024-05-29 00:00:00 2024-05-29 00:00:00 [facility] Alcohol intake 2014-04-29 00:00:00 2014-04-29 00:00:00 [facility] Sex assigned at 2004 00:00:00 2004 00:00:00 [facility] Smoking Status Start Date Stop Date Source Never smoked tobacco [facility] Medications Ordered Medication Name Filled Medication Name Start Date Stop Date Current Medication? Ordering Clinician Indication Dosage Frequency Signature (SIG) Comments Components Source traMADoL 50 mg tablet 05-29 00:00: 00 06-06 04:59 :00 Yes [id number] 50mg Take 1 tablet by mouth every 6 (six) hours as needed for Pain (scale 7-10) for up to 7 days. Indication s: acute pain [facility] methocarbam oL 750 mg tablet 05-29 00:00: 00 06-06 04:59 :00 Yes [id number] 750mg Take 1 tablet by mouth 4 (four) times daily for 7 days. [facility] HYDROcodone -acetaminop hen 7.5-325 mg per tablet 16 00:00: 00 05-30 04:59 :00 Yes [id number] 1{tbl} Take 1 tablet by mouth every 6 (six) hours as needed for Pain for up to 7 days. Indication s: acute pain, s/p femur IMN [facility] HYDROcodone -acetaminop hen 7.5-325 mg per tablet -09 00:00: 00 05-23 04:59 :00 Yes [id number] 1{tbl} Take 1 tablet by mouth every 6 (six) hours as needed for Pain for up to 7 days. Indication s: acute pain [facility] methocarbam oL 750 mg tablet 05-14 00:00: 00 Yes [id number] 750mg Take 1 tablet by mouth 3 (three) times daily as needed for Insomnia (muscle spasms). [facility] cloNIDine 0.1 mg tablet 05-08 00:00: 00 Yes [id number] .1mg Take 1 tablet by mouth at bedtime. [facility] escitalopra m oxalate 10 mg tablet 05-08 00:00: 00 Yes [id number] 10mg Take 1 tablet by mouth in the morning. [facility] famotidine 40 mg tablet 05-08 00:00: 00 Yes [id number] 40mg Take 1 tablet by mouth in the morning. [facility] albuterol sulfate HFA 90 mcg/actuati on aerosol inhaler 05-08 00:00: 00 Yes [id number] 2{puff} Inhale 2 Puffs every 4 (four) hours as needed for Wheezing or Shortness of Breath. [facility] ADDERALL XR 30 mg 24 hr capsule 05-08 00:00: 00 Yes [id number] 30mg Take 1 capsule by mouth every morning. [facility] HYDROcodone -acetaminop hen 10-325 mg tablet 05-08 00:00: 00 05-16 04:59 :00 Yes [id number] 1{tbl} Take 1 tablet by mouth every 6 (six) hours as needed for Pain (scale 4-6) for up to 7 days. Indication s: acute pain, surgery [facility] amphetamine -dextroamph etamine (ADDERALL XR) 30 mg 24 hr capsule 05-08 00:00: 00 05-08 00:00 :00 No [id number] 30mg Take 1 capsule by mouth every morning. [facility] HYDROcodone -acetaminop hen 10-325 mg tablet 05-03 00:00: 00 Yes [id number] 1{tbl} Take 1 tablet by mouth every 6 (six) hours as needed for Pain (scale 4-6). Indication s: acute pain, femur fx with surgery [facility] HYDROcodone -acetaminop hen 10-325 mg tablet 05-02 00:00: 05-03 00:00 :00 No [id number] 1{tbl} Take 1 tablet by mouth every 6 (six) hours as needed for Pain (scale 4-6) for up to 7 days. Indication s: acute pain, femur fx with surgery [facility] enoxaparin 40 mg/0.4 mL injection enoxaparin 40 mg/0.4 mL injection 04-25 00:00: 05-24 04:59 :00 Yes [id number] 40mg inject 0.4 mL under the skin in the morning for 28 days. [facility] docusate 100 mg capsule 04-25 00:00: 00 05-11 04:59 :00 Yes [id number] 100mg Take 1 capsule by mouth in the morning and 1 capsule in the evening. Do all this for 15 days. [facility] methocarbam oL 750 mg tablet 04-25 00:00: 05-10 04:59 :00 Yes [id number] 750mg Take 1 tablet by mouth 3 (three) times daily as needed for Pain (scale 4-6) for up to 14 days. [facility] gabapentin 300 mg capsule 04-25 00:00: 00 05-10 04:59 :00 Yes [id number] 300mg Take 1 capsule by mouth in the morning and 1 capsule at noon and 1 capsule in the evening. Do all this for 14 days. [facility] traMADoL 50 mg tablet 04-25 00:00: 00 05-03 04:59 :00 Yes [id number] 50mg Take 1 tablet by mouth every 6 (six) hours as needed for Pain (scale 1-3) for up to 7 days. Indication s: acute pain [facility] HYDROcodone -acetaminop hen 10-325 mg tablet 20 00:00: 00 05-02 14:00 :30 No [id number] 1{tbl} Take 1 tablet by mouth every 6 (six) hours as needed for Pain (scale 4-6) or Pain (scale 7-10) for up to 7 days. Indication s: acute pain [facility] ondansetron 4 mg tablet 04-25 00:00: 00 05-01 04:59 :00 Yes [id number] 4mg Take 1 tablet by mouth every 12 (twelve) hours as needed for Nausea and Vomiting (N/V) for up to 5 days. Univers [facility] EPINEPHrine 1:1,000 (1 mg/mL) (ADRENALIN) injection 04-24 19:00: 00 04-24 20:27 :04 No Infiltrati on, ONCE INTRA PROCEDURE, Starting on Mon04/24/24 at 1400, Until Mon04/24/24 at 1527, Routine, [facility]up[facility]erv free[facility] (SENSORCAIN E MPF) 0.25 % (2.5 mg/mL) injection 04-24 19:00: 00 04-24 20:26 :52 No Infiltrati on, ONCE INTRA PROCEDURE, Starting on Mon04/24/24 at 1400, Until Mon04/24/24 at 1526, Routine, Intra-op [facility] acetaminoph en (OFIRMEV) IV piggyback 04-24 18:09: 00 04-24 18:41 :18 No IV Infusion, Administer over 15 Minutes, ONCE INTRA PROCEDURE, Starting on Mon04/24/24 at 1309, Until Mon04/24/24 at 1341, Routine, Intra-op [facility] ondansetron (ZOFRAN (PF)) injection 04-24 18:09: 00 04-24 18:41 :18 No Slow IV Push, ONCE INTRA PROCEDURE, Starting on Mon04/24/24 at 1309, Until Mon04/24/24 at 1341, Administer over 2-5 Minutes, Intra-op [facility] lactated ringers IV infusion 04-24 16:30: 00 04-24 18:41 :18 No IV Infusion, CONTINUOUS PRN, Starting on Mon04/24/24 at 1130, Until Mon04/24/24 at 1341, Routine, Intra-op [facility] ceFAZolin (ANCEF) injection 04-24 16:20: 00 04-24 18:41 :18 No Intravenou s, ONCE INTRA PROCEDURE, Starting on Mon04/24/24 at 1120, Until Mon04/24/24 at 1341, HARIKA, Intra-op [facility] HYDROmorphO ne (DILAUDID) injection 04-24 16:20: 00 04-24 18:41 :19 No Slow IV Push, ONCE INTRA PROCEDURE, Starting on Mon04/24/24 at 1120, Until Mon04/24/24 at 1341, Routine, Intra-op [facility] phenylephri ne (VAZCULEP) injection 04-24 16:08: 00 04-24 18:41 :19 No Slow IV Push, ONCE INTRA PROCEDURE, Starting on Mon04/24/24 at 1108, Until Mon04/24/24 at 1341, Routine, Intra-op [facility] dexMEDEtomi dine (PRECEDEX) 20 mcg/0.2 mL syringe 04-24 15:59: 00 04-24 18:41 :19 No Slow IV Push, ONCE INTRA PROCEDURE, Starting on Mon04/24/24 at 1059, Until Mon04/24/24 at 1341, Routine, Intra-op [facility] dexamethaso ne (DECADRON PHOSPHATE) 4 mg/mL injection 04-24 15:52: 00 04-24 18:41 :19 No IV Push, ONCE INTRA PROCEDURE, Starting on Mon04/24/24 at 1052, Until Mon04/24/24 at 1341, Routine, Intra-op [facility] rocuronium (ZEMURON) injection 04-24 15:51: 00 04-24 18:41 :19 No IV Push, ONCE INTRA PROCEDURE, Starting on Mon04/24/24 at 1051, Until Mon04/24/24 at 1341, Routine, Intra-op [facility] propofoL IV infusion 04-24 15:50: 00 04-24 18:41 :19 No Intravenou s, ONCE INTRA PROCEDURE, Starting on Mon04/24/24 at 1050, Intra-op [facility] lidocaine 1% (XYLOCAINE) 100 mg/10 mL (1 %) injection 04-24 15:49: 00 04-24 18:41 :19 No Intravenou s, ONCE INTRA PROCEDURE, Starting on Mon04/24/24 at 1049, Until Mon04/24/24 at 1341, Routine, Intra-op [facility] FENTanyl (PF) (SUBLIMAZE) injection 04-24 15:49: 00 04-24 18:41 :19 No Intravenou s, ONCE INTRA PROCEDURE, Starting on Mon04/24/24 at 1049, Until Mon04/24/24 at 1341, Routine, Intra-op [facility] NaCl 0.9% (NS) IV infusion 04-24 15:44: 00 04-24 18:41 :18 No IV Infusion, CONTINUOUS PRN, Starting on Mon04/24/24 at 1044, Until Mon04/24/24 at 1341, Routine, Intra-op [facility] midazolam (VERSED) injection 04-24 15:44: 00 04-24 18:41 :19 No IV Push, ONCE INTRA PROCEDURE, Starting on Mon04/24/24 at 1044, Until Mon04/24/24 at 1341, Routine, Intra-op [facility] amphetamine -dextroamph etamine (ADDERALL XR) 30 mg 24 hr capsule 02-12 00:00: 00 05-08 00:00 :00 No [id number] 30mg Take 1 capsule by mouth every morning. [facility] amphetamine -dextroamph etamine (ADDERALL XR) 30 mg 24 hr capsule 2023-02 00:00: 00 02-12 00:00 :00 No [id number] 30mg Take 1 capsule by mouth every morning. [facility] escitalopra m oxalate 10 mg tablet 2024-0 9-16 00:00: 00 05-08 00:00 :00 No [id number] 10mg Take 1 tablet by mouth in the morning. [facility] cloNIDine 0.1 mg tablet 16 00:00: 00 05-08 00:00 :00 No [id number] .1mg Take 1 tablet by mouth at bedtime. [facility] amphetamine -dextroamph etamine (ADDERALL XR) 30 mg 24 hr capsule 10-22 00:00: 00 12-14 00:00 :00 No [id number] 30mg Take 1 capsule by mouth every morning. [facility] lidocaine-p rilocaine cream 10-22 00:00: 00 10-23 04:59 :00 No [id number] Apply to area(s) once now for 1 dose. [facility] amphetamine -dextroamph etamine (ADDERALL XR) 30 mg 24 hr capsule 08-28 00:00: 00 10-22 00:00 :00 No [id number] 30mg Take 1 capsule by mouth every morning. [facility] cloNIDine 0.1 mg tablet 06-28 00:00: 00 10-22 00:00 :00 No [id number] .1mg Take 1 tablet by mouth at bedtime. [facility] escitalopra m oxalate 10 mg tablet 06-28 00:00: 00 10-22 00:00 :00 No [id number] 10mg Take 1 tablet by mouth in the morning. [facility] ADDERALL XR 30 mg 24 hr capsule 0 5-23 00:00: 00 08-28 00:00 :00 No [id number] 30mg Take 1 capsule by mouth every morning. [facility] amphetamine -dextroamph etamine (ADDERALL XR) 30 mg 24 hr capsule 0 5-23 00:00: 00 06-28 00:00 :00 No [id number] 30mg Take 1 capsule by mouth every morning. [facility] amphetamine -dextroamph etamine (ADDERALL XR) 30 mg 24 hr capsule 06-26 00:00: 00 06-28 00:00 :00 No [id number] 30mg Take 1 capsule by mouth every morning. [facility] cloNIDine 0.1 mg tablet 06-26 00:00: 00 06-28 00:00 :00 No [id number] .1mg Take 1 tablet by mouth at bedtime. [facility] escitalopra m oxalate 10 mg tablet 06-26 00:00: 00 06-28 00:00 :00 No [id number] 10mg Take 1 tablet by mouth in the morning. [facility] lidocaine-p rilocaine cream 06-26 00:00: 00 06-27 04:59 :00 No [id number] Apply to area(s) once now for 1 dose. Apply 1 hour before lab draw. [facility] cloNIDine 0.1 mg tablet 06-16 00:00: 00 06-26 00:00 :00 No .1mg Take 1 tablet by mouth at bedtime. [facility] ADDERALL XR 30 mg 24 hr capsule -10 00:00: 00 06-26 00:00 :00 No 30mg Take 1 capsule by mouth every morning. [facility] famotidine 40 mg tablet 05 00:00: 00 05-08 00:00 :00 No 40mg Take 1 tablet by mouth in the morning. [facility] permethrin (ELIMITE) 5 % cream 04-29 00:00: 00 06-26 00:00 :00 No Apply neck to toes overnight once a week x 2 applicatio ns [facility] Adderall 30 mg tablet Take [...] 2 puffs as needed by inhalation route. [facility] Immun[facility] Ordered Immunization Name [...] Pediarix (dtap/hep B/ipv) 2005-05-11 00:00:00 Completed [facility] Hib-HbOC 2005-05-11 00:00:00 Completed Pneumococcal 7 Conjugate, [...] and W-135) conjugate vaccine (MCV4P) Unknown Completed [facility] MMR Unknown Completed [facility] Proquad (MMR/VARICELLA) Unknown Completed [facility] TDAP Unknown Completed [facility] Varicella (varivax)(chicken pox) Unknown Completed [facility] Pediarix (dtap/hep B/ipv) Unknown Completed [facility] DTaP, Unspecified Formulation Unknown Completed [facility] Influenza Virus Vaccine Nasal Unknown Completed [facility] HEPATITIS A Unknown Completed [facility] Hep B, Adol or Pedi Dosage Unknown Completed [facility] Hib-HbOC Unknown Completed [facility] Pneumococcal 7 Conjugate, PCV7 (Prevnar7) Unknown Completed [facility] IPV Unknown Completed [facility] Pediarix (dtap/hep B/ipv) Unknown Completed [facility] DTaP, Unspecified Formulation Unknown Completed [facility] Influenza Virus Vaccine Nasal Unknown Completed [facility] HEPATITIS A Unknown Completed [facility] Hep B, Adol or Pedi Dosage Unknown Completed [facility] Hib-HbOC Unknown Completed [facility] Meningococcal Polysaccharide (groups A, C, Y and W-135) conjugate vaccine (MCV4P) Unknown Completed [facility] MMR Unknown Completed [facility] Proquad (MMR/VARICELLA) Unknown Completed [facility] Pneumococcal 7 Conjugate, PCV7 (Prevnar7) Unknown Completed [facility] IPV Unknown Completed [facility] Pediarix (dtap/hep B/ipv) Unknown Completed [facility] TDAP Unknown Completed [facility] Varicella (varivax)(chicken pox) Unknown Completed [facility] Pediarix (dtap/hep B/ipv) Unknown Completed [facility] DTaP, Unspecified Formulation Unknown Completed [facility] DTaP, Unspecified Formulation Unknown Completed [facility] Influenza Virus Vaccine Nasal Unknown Completed [facility] HEPATITIS A Unknown Completed [facility] Hep B, Adol or Pedi Dosage Unknown Completed [facility] Hib-HbOC Unknown Completed [facility] Meningococcal Polysaccharide (groups A, C, Y and W-135) conjugate vaccine (MCV4P) Unknown Completed [facility] MMR Unknown Completed [facility] Proquad (MMR/VARICELLA) Unknown Completed [facility] Pneumococcal 7 Conjugate, PCV7 (Prevnar7) Unknown Completed [facility] IPV Unknown Completed [facility] TDAP Unknown Completed [facility] Varicella (varivax)(chicken pox) Unknown Completed [facility] Influenza Virus Vaccine Nasal Unknown Completed [facility] Pediarix (dtap/hep B/ipv) Unknown Completed [facility] DTaP, Unspecified Formulation Unknown Completed [facility] Influenza Virus Vaccine Nasal Unknown Completed [facility] HEPATITIS A Unknown Completed [facility] Hep B, Adol or Pedi Dosage Unknown Completed [facility] Hib-HbOC Unknown Completed [facility] Meningococcal Polysaccharide (groups A, C, Y and W-135) conjugate vaccine (MCV4P) Unknown Completed [facility] MMR Unknown Completed [facility] Proquad (MMR/VARICELLA) Unknown Completed [facility] Pneumococcal 7 Conjugate, PCV7 (Prevnar7) Unknown Completed [facility] IPV Unknown Completed [facility] TDAP Unknown Completed [facility] HEPATITIS A Unknown Completed [facility] Varicella (varivax)(chicken pox) Unknown Completed [facility] Pediarix (dtap/hep B/ipv) Unknown Completed [facility] DTaP, Unspecified Formulation Unknown Completed [facility] Influenza Virus Vaccine Nasal Unknown Completed [facility] HEPATITIS A Unknown Completed [facility] Hep B, Adol or Pedi Dosage Unknown Completed [facility] Hib-HbOC Unknown Completed [facility] Hep B, Adol or Pedi Dosage Unknown Completed [facility] Meningococcal Polysaccharide (groups A, C, Y and W-135) conjugate vaccine (MCV4P) Unknown Completed [facility] MMR Unknown Completed [facility] Proquad (MMR/VARICELLA) Unknown Completed [facility] Pneumococcal 7 Conjugate, PCV7 (Prevnar7) Unknown Completed [facility] IPV Unknown Completed [facility] TDAP Unknown Completed [facility] Varicella (varivax)(chicken pox) Unknown Completed [facility] Hib-HbOC Unknown Completed [facility] Pediarix (dtap/hep B/ipv) Unknown Completed [facility] DTaP, Unspecified Formulation Unknown Completed [facility] Influenza Virus Vaccine Nasal Unknown Completed [facility] HEPATITIS A Unknown Completed [facility] Hep B, Adol or Pedi Dosage Unknown Completed [facility] Hib-HbOC Unknown Completed [facility] Meningococcal Polysaccharide (groups A, C, Y and W-135) conjugate vaccine (MCV4P) Unknown Completed [facility] MMR Unknown Completed [facility] Proquad (MMR/VARICELLA) Unknown Completed [facility] Pneumococcal 7 Conjugate, PCV7 (Prevnar7) Unknown Completed [facility] IPV Unknown Completed [facility] TDAP Unknown Completed [facility] Varicella (varivax)(chicken pox) Unknown Completed [facility] Pediarix (dtap/hep B/ipv) Unknown Completed [facility] DTaP, Unspecified Formulation Unknown Completed [facility] Influenza, Live, Trivalent, Intranasal (FLUMIST) Unknown Completed [facility] HEPATITIS A Unknown Completed [facility] Hep B, Adol or Pedi Dosage Unknown Completed [facility] Hib-HbOC Unknown Completed [facility] Meningococcal Polysaccharide (groups A, C, Y and W-135) conjugate vaccine (MCV4P) Unknown Completed [facility] MMR Unknown Completed [facility] Proquad (MMR/VARICELLA) Unknown Completed [facility] Pneumococcal 7 Conjugate, PCV7 (Prevnar7) Unknown Completed [facility] Meningococcal Polysaccharide (groups A, C, Y and W-135) conjugate vaccine (MCV4P) Unknown Completed [facility] IPV Unknown Completed [facility] TDAP Unknown Completed [facility] Varicella (varivax)(chicken pox) Unknown Completed [facility] MMR Unknown Completed [facility] Proquad (MMR/VARICELLA) Unknown Completed [facility] Pneumococcal 7 Conjugate, PCV7 (Prevnar7) Unknown Completed [facility] IPV Unknown Completed [facility] TDAP Unknown Completed [facility] Varicella (varivax)(chicken pox) Unknown Completed [facility] Vital Signs Vital Name Observation Time Observation Value Comments S ource Systolic blood pressure 2024-05-29 19:09:00 129 mm[Hg] [facility] Diastolic blood pressure 2024-05-29 19:09:00 80 mm[Hg] [facility] Heart rate 2024-05-29 19:09:00 78 /min [facility] Respiratory rate 2024-05-29 19:09:00 20 /min [facility] Body height 2024-05-29 19:09:00 182.9 cm [facility] Body weight 2024-05-29 19:09:00 88.179 kg [facility] BMI 2024-05-29 19:09:00 26.37 kg/m2 [facility] Oxygen saturation in Arterial blood by Pulse oximetry 2024-05-29 19:09:00 98 /min [facility] Body height 2024-05-14 17:35:00 182.9 cm [facility] Systolic blood pressure 2024-05-08 20:42:00 143 mm[Hg] [facility] Diastolic blood pressure 2024-05-08 20:42:00 87 mm[Hg] [facility] Heart rate 2024-05-08 20:42:00 85 /min [facility] Respiratory rate 2024-05-08 20:42:00 15 /min [facility] Body height 2024-05-08 20:42:00 182.9 cm [facility] Body weight 2024-05-08 20:42:00 90.861 kg [facility] BMI 2024-05-08 20:42:00 27.17 kg/m2 [facility] Systolic blood pressure 2024-05-06 03:00:51 150 mm[Hg] [facility] Diastolic blood pressure 2024-05-06 03:00:51 85 mm[Hg] [facility] Heart rate 2024-05-06 03:00:51 93 /min [facility] Body temperature 2024-05-06 03:00:51 36.89 Erika [facility] Respiratory rate 2024-05-06 03:00:51 18 /min [facility] Oxygen saturation in Arterial blood by Pulse oximetry 2024-05-06 03:00:51 98 /min [facility] Body height 2024-05-06 01:34:00 182.9 cm [facility] Body weight 2024-05-06 01:34:00 89.812 kg [facility] BMI 2024-05-06 01:34:00 26.85 kg/m2 [facility] Systolic blood pressure 2023-10-23 21:24:00 132 mm[Hg] [facility] Diastolic blood pressure 2023-10-23 21:24:00 83 mm[Hg] [facility] Heart rate 2023-10-23 21:18:00 95 /min [facility] Body temperature 2023-10-23 21:18:00 36.67 Erika [facility] Respiratory rate 2023-10-23 21:18:00 18 /min [facility] Body height 2023-10-23 21:18:00 175.9 cm [facility] Body weight 2023-10-23 21:18:00 101.152 kg [facility] BMI 2023-10-23 21:18:00 32.69 kg/m2 [facility] Body mass index (BMI) [Percentile] Per age and sex 2023-10-23 21:18:00 96.75 % [facility] Oxygen saturation in Arterial blood by Pulse oximetry 2023-10-23 21:18:00 98 /min [facility] Height 2023-07-18 00:00:00 71 [in_i] [facility] BP Diastolic 2023-07-18 00:00:00 64 mm[Hg] Petros [facility] BMI (Body Mass Index) 2023-07-18 00:00:00 31 kg/m2 [facility] BP Systolic 2023-07-18 00:00:00 122 mm[Hg] [facility] Body Weight 2023-07-18 00:00:00 222 [lb_av] Petros [facility] Systolic blood pressure 2023-06-27 21:34:00 135 mm[Hg] [facility] Diastolic blood pressure 2023-06-27 21:34:00 74 mm[Hg] [facility] Heart rate 2023-06-27 21:34:00 76 /min [facility] Body temperature 2023-06-27 21:34:00 36.61 Erika [facility] Respiratory rate 2023-06-27 21:34:00 19 /min [facility] Body height 2023-06-27 21:34:00 178.5 cm [facility] Body weight 2023-06-27 21:34:00 101.209 kg [facility] BMI 2023-06-27 21:34:00 31.76 kg/m2 [facility] Body mass index (BMI) [Percentile] Per age and sex 2023-06-27 21:34:00 96.40 % [facility] Oxygen saturation in Arterial blood by Pulse oximetry 2023-06-27 21:34:00 97 /min [facility] Procedures Procedure Date / Time Performed Performing Clinicia n Source HB ECG ROUTINE & RHYTHM STRIP 2024-05-29 19:14:53 Vincent Townsend [facility] NERVE BLOCK 2024-05-01 19:00:50 Tashi Chambers [facility] INTUBATION 2024-04-24 15:54:00 Koko Hylton [facility] Encounters Start Date/Time End Date/Time Encounter Type Admission Type Attending Clinicians Care Facility Care Department Encounter ID Source 2024-07-02 14:00:00 2024-07-02 14:00:00 Outpatient LEONARDO VEGA MARK [facility] [id number] [facility] 2024-06-21 09:00:00 2024-06-21 09:00:00 Outpatient VINCENT TRAN [facility] [id number] [facility] 2024-06-12 00:00:00 2024-06-12 13:44:53 Case Management Julitea Maloney Angelica R [facility] 1.840.114 350.1.13.10 4.2.7.2.686 [id number] [facility] 2024-06-12 13:00:00 2024-06-12 13:00:00 Outpatient GRETA GREENBERG CRAIG [facility] [id number] [facility] 2024-06-05 13:45:00 2024-06-05 13:45:00 Outpatient GRETA GREENBERG CRAIG [facility] [id number] [facility] 2024-06-03 00:00:00 2024-06-04 09:51:17 Telephone GarciaLeonardo escamilla [facility] 1.840.114 350.1.13.10 4.2.7.2.686 [id number] [facility] 2024-05-30 14:30:00 2024-05-30 14:30:00 Outpatient VINCENT TRAN [facility] [id number] [facility] 2024-05-29 00:00:00 2024-05-30 12:40:52 Telephone Leonardo Garcia [facility] 1..840.114 350.1.13.10 4.2.7.2.686 [id number] [facility] 2024-05-29 14:00:00 2024-05-29 14:55:12 Outpatient R VICNENT TOWNSEND [facility] [id number] [facility] 2024-05-29 14:00:00 2024-05-29 14:55:12 Office Visit Vincent Townsend [facility] 1.2.840.114 350.1.13.10 4.2.7.2.686 [id number] [facility] 2024-05-29 13:00:00 2024-05-29 13:45:00 Ancillary Visit Julieta Maloney Craig L Medrano, Angelica R [facility] 1.2.840.114 350.1.13.10 4.2.7.2.686 [id number] [facility] 2024-05-29 00:00:00 2024-05-29 11:02:04 Telephone Leonardo Garcia [facility] 1.2.840.114 350.1.13.10 4.2.7.2.686 [id number] [facility] 2024-05-28 00:00:00 2024-05-28 13:37:18 Refill Leonardo Garcia [facility] 1.2.840.114 350.1.13.10 4.2.7.2.686 [id number] [facility] 2024-05-23 00:00:00 2024-05-23 12:46:01 Patient Secure Msg Leonardo Garcia [facility] 1.2.840.114 350.1.13.10 4.2.7.2.686 [id number] [facility] 2024-05-22 13:00:00 2024-05-22 13:45:00 Ancillary Visit Julieta Maloney Craig L Medrano, Angelica R [facility] 1.2.840.114 350.1.13.10 4.2.7.2.686 [id number] [facility] 2024-05-22 00:00:00 2024-05-22 13:08:53 Telephone GarciaLeonardo Chidi [facility] 1.2.840.114 350.1.13.10 4.2.7.2.686 [id number] [facility] 2024-05-20 00:00:00 2024-05-20 10:03:12 Telephone Jose Leonardo Murillo [facility] 1.2.840.114 350.1.13.10 4.2.7.2.686 [id number] [facility] 2024-05-17 00:00:00 2024-05-20 10:02:25 Patient Secure Msg GarciaLeonardo escamilla [facility] 1.2.840.114 350.1.13.10 4.2.7.2.686 [id number] [facility] 2024-05-15 13:00:00 2024-05-15 13:58:29 Ancillary Visit Julieta Maloney Craig L Medrano, Angelica R [facility] 1.2.840.114 350.1.13.10 4.2.7.2.686 [id number] [facility] 2024-05-14 00:00:00 2024-05-15 13:57:55 Telephone GarciaLeonardo [facility] 1.2.840.114 350.1.13.10 4.2.7.2.686 [id number] [facility] 2024-05-14 12:32:08 2024-05-14 23:59:00 Outpatient R LEONARDO GARCIA MARK [facility] [id number] [facility] 2024-05-14 12:32:08 2024-05-14 23:59:00 Hospital Encounter Leonardo Garcia [facility] 1.2.840.114 350.1.13.10 4.2.7.2.686 [id number] [facility] 2024-05-14 13:00:00 2024-05-14 13:15:00 Office Visit Leonardo Garcia [facility] 1.2.840.114 350.1.13.10 4.2.7.2.686 [id number] [facility] 2024-05-13 00:00:00 2024-05-13 16:42:16 Telephone Leonardo Garcia [facility] 1.2840.114 350.1.13.10 4.2.7.2.686 [id number] [facility] 2024-05-13 14:30:00 2024-05-13 15:15:00 Ancillary Visit Julieta Maloney, Julieta Boston [facility] 1.2840.114 350.1.13.10 4.2.7.2.686 [id number] [facility] 2024-05-12 00:00:00 2024-05-12 09:26:27 Abstract Leonardo Garcia [facility] 1.2840.114 350.1.13.10 4.2.7.2.686 [id number] [facility] 2024-05-08 00:00:00 2024-05-09 09:19:02 Telephone Leonardo Garcia [facility] 1.2840.114 350.1.13.10 4.2.7.2.686 [id number] [facility] 2024-05-08 15:40:00 2024-05-08 16:05:31 Outpatient R GUTIERREZ WOLFE [facility] [id number] [facility] 2024-05-08 15:40:00 2024-05-08 16:05:31 Office Visit Neo Gutierrez [facility] 1.20.114 350.1.13.10 4.2.7.2.686 [id number] [facility] 2024-05-08 13:45:00 2024-05-08 15:09:58 Ancillary Visit Julieta Maloney [facility] 1.2.114 350.1.13.10 4.2.7.2.686 [id number] [facility] 2024-05-06 14:30:00 2024-05-06 15:37:58 Outpatient R GRETA CUMMINGS CRAIG [facility] [id number] [facility] 2024-05-06 14:30:00 2024-05-06 15:37:58 Ancillary Visit Julieta Maloney Craig L [facility] 1.20.114 350.1.13.10 4.2.7.2.686 [id number] [facility] 2024-05-05 20:38:00 2024-05-05 22:13:00 Emergency X ALEJANDRO LORA DONNELL [facility] E[facility] [id number] [facility] 2024-05-05 20:38:00 2024-05-05 22:13:00 Emergency Alejandro Lora [facility] 1.20.114 350.1.13.10 4.2.7.2.686 [id number] [facility] 2024-05-03 00:00:00 2024-05-03 22:51:20 Nurse Triage Piedad Trujillo Rebecca L [facility] 1.2.840.114 350.1.13.10 4.2.7.2.686 [id number] [facility] 2024-05-03 13:30:00 2024-05-03 13:30:00 Outpatient VINCENT TRAN [facility] [id number] [facility] 2024-05-02 00:00:00 2024-05-03 10:14:31 Telephone Garcia Leonardo Murillo [facility] 1.2.840.114 350.1.13.10 4.2.7.2.686 [id number] [facility] 2024-05-02 00:00:00 2024-05-02 14:52:49 Telephone Garcia Leonardo Murillo [facility] 1.2.840.114 350.1.13.10 4.2.7.2.686 [id number] [facility] 2024-05-01 00:00:00 2024-05-02 09:02:21 Telephone Garcia Leonardo Murillo [facility] 1.2.840.114 350.1.13.10 4.2.7.2.686 [id number] [facility] 2024-04-29 13:45:00 2024-04-29 16:05:47 Ancillary Visit Julieta Maloney Craig L Medrano, Angelica R [facility] 1.2840.114 350.1.13.10 4.2.7.2.686 [id number] [facility] 2024-04-29 00:00:00 2024-04-29 15:43:11 Telephone Garcia Leonardo Murillo [facility] 1.2840.114 350.1.13.10 4.2.7.2.686 [id number] [facility] 2024-04-29 00:00:00 2024-04-29 10:03:07 Transition of Care Pooja Obando Kristi L ARACELI FANG 1.2.840.114 350.1.13.10 4.2.7.2.686 [id number] [facility] 2024-04-28 00:00:00 2024-04-28 13:33:19 Nurse Triage Sarah Davison Priscilla [facility] 1.2.840.114 350.1.13.10 4.2.7.2.686 [id number] [facility] 2024-04-26 00:00:00 2024-04-26 21:16:27 Nurse Triage Key Razo Katelyn D [facility] 1.2.840.114 350.1.13.10 4.2.7.2.686 [id number] [facility] 2024-04-26 00:00:00 2024-04-26 20:39:23 Leonardo Foote [facility] 1.2.840.114 350.1.13.10 4.2.7.2.686 [id number] [facility] 2024-04-24 05:54:00 2024-04-25 18:00:00 Inpatient T LEONARDO GARCAI MARK [facility] [id number] [facility] 2024-04-25 11:00:00 2024-04-25 11:00:00 Outpatient LEENA MANCIA [facility] [id number] [facility] 2024-04-24 10:44:00 2024-04-24 13:41:00 Anesthesia Event Koko Hylton Stefanie [facility] 1.2.840.114 350.1.13.10 4.2.7.2.686 [id number] [facility] 2024-04-23 23:19:00 2024-04-24 04:45:00 Emergency X NADEEN, KIRSTIN [facility]ENIOR, [facility] [id number] [facility] 2024-03-27 16:20:00 2024-03-27 16:20:00 Outpatient NADEGE FARRAR LESLEY [facility] [id number] [facility] 2024-03-08 00:00:00 2024-03-08 16:18:47 Gutierrez Tran [facility] 1.2.840.114 350.1.13.10 4.2.7.2.686 [id number] [facility] 2024-02-29 15:00:00 2024-02-29 15:00:00 Outpatient LEENA MANCIA [facility] [id number] [facility] 2024-02-13 00:00:00 2024-02-13 16:54:42 Gutierrez Tran [facility] 1.2.840.114 350.1.13.10 4.2.7.2.686 [id number] [facility] 2024-02-13 00:00:00 2024-02-13 15:40:43 Telephone Leena Richardson [facility] 1.2.840.114 350.1.13.10 4.2.7.2.686 [id number] [facility] 2024-01-02 14:00:00 2024-01-02 14:00:00 Outpatient GUTIERREZ DISLA [facility] [id number] [facility] 2023-12-15 00:00:00 2023-12-15 14:39:25 Micheal Gutierrez Wolfe [facility] 1.2.840.114 350.1.13.10 4.2.7.2.686 [id number] [facility] 2023-11-23 11:00:00 2023-11-23 11:00:00 Outpatient R KALIA CARBAJAL [facility] [id number] [facility] 2023-11-06 13:40:00 2023-11-06 13:40:00 Outpatient R BEVANDRESLEENA HILL [facility] [id number] [facility] 2023-11-01 14:00:00 2023-11-01 14:00:00 Outpatient R SRIDHAR KING [facility] [id number] [facility] 2023-10-31 00:00:00 2023-10-31 09:22:44 Telephone Gutierrez Wolfe [facility] 1.2840.114 350.1.13.10 4.2.7.2.686 [id number] [facility] 2023-10-23 16:00:00 2023-10-23 16:50:30 Outpatient R LEENA RICHARDSON [facility] [id number] [facility] 2023-10-23 16:00:00 2023-10-23 16:50:30 Office Visit Leena Richardson [facility] 1.2.840.114 350.1.13.10 4.2.7.2.686 [id number] [facility] 2023-10-14 00:00:00 2023-10-16 08:44:45 Telephone Gutierrez Wolfe [facility] 1.2.840.114 350.1.13.10 4.2.7.2.686 [id number] [facility] 2023-09-15 09:40:00 2023-09-15 09:40:00 Outpatient R GUTIERREZ OWLFE [facility] [id number] [facility] 2023-09-06 13:40:00 2023-09-06 13:40:00 Outpatient R GUTIERREZ WOLFE [facility] [id number] [facility] 2023-08-28 00:00:00 2023-08-29 10:02:53 Telephone Gutierrez Wolfe [facility] 1.2.840.114 350.1.13.10 4.2.7.2.686 [id number] [facility] 2023-07-18 00:00:00 2023-07-18 00:00:00 Anne-Marie Womack MD: [address] [place] [address] , [address], [place] [address] , Ph. [facility] [place] [facility] [id number] [facility] 2023-07-03 00:00:00 2023-07-05 08:30:31 Telephone Neo [facility] 1.2.840.114 350.1.13.10 4.2.7.2.686 [id number] [facility] 2023-06-29 00:00:00 2023-06-29 15:06:58 Telephone Gutierrez Wolfe [facility] 1.2.840.114 350.1.13.10 4.2.7.2.686 [id number] [facility] 2023-06-27 16:20:00 2023-06-27 16:58:32 Outpatient R GUTIERREZ WOLFE [facility] [id number] [facility] 2023-06-27 16:20:00 2023-06-27 16:58:32 Office Visit Gutierrez Wolfe [facility] 1.2.840.114 350.1.13.10 4.2.7.2.686 [id number] [facility] 2023-06-23 00:00:00 2023-06-27 08:55:31 Telephone Gutierrez Wolfe [facility] 1.2.840.114 350.1.13.10 4.2.7.2.686 [id number] [facility] 2023-06-20 00:00:00 2023-06-20 10:38:47 Telephone Gutierrez Wolfe [facility] 1.2.840.114 350.1.13.10 4.2.7.2.686 [id number] [facility] 2023-05-19 00:00:00 2023-05-19 00:00:00 Outpatient Ginger STANLEY VFP VFP [id number] [facility] 2020-10-05 18:22:48 2020-10-05 18:32:48 Laboratory Only Only, Ang Db Test Ramon [facility]hek [facility] 1.2.840.114 350.1.13.10 4.2.7.2.686 [id number] [facility] 2020-10-05 18:25:00 2020-10-05 18:25:00 Outpatient LORE OVERTON [facility] [id number] [facility] Results Test Description Test Time Test Comments Results Result Comments Source Nerve Block 19:00:50 Tashi Chambers MD ? ? 05/01/2024 ?2:02 PM Nerve Block Procedure: Femoral Nerve Block Patient Location: HoldingLaterality: LeftPost Op Pain: Start Time: 04/24/2024 2:01 PMEnd Time: 04/24/2024 2:01 PMPost Op Pain Management requested by surgeon per surgical: Progress NoteAnesthesiologist: Ally Scott MDResident/SENIOR MANUFACTURING TEST ENGINEER: Tashi Chambers MDPerformed by: resident/CRNAPreanesthetic timeout completed [...] Given: Regional:Bupiv 0.25% 30 mLEPI 1:200K [facility] Intubation 15:54:00 Koko Hylton MD ? ? 04/24/2024 11:33 AMIntubationDate/Time: 04/24/2024 10:54 AMUrgency: elective Airway not difficult General Information and Staff Patient location during procedure: ORPerformed: resident/SENIOR MANUFACTURING TEST ENGINEER Performed by: Koko Hylton MDAuthorized by: Daria [...] dentition and lips unchanged from pre-op. [facility] Procedure Notes Date/Time Note Provider Source 2024-05-01 14:00:50 Associated Order(s): Nerve Block Images from the original note were not included. Nerve Block Procedure: Femoral Nerve Block Patient Location: Holding Laterality: Left Post Op Pain: Start Time: 04/24/2024 2:01 PM End Time: 04/24/2024 2:01 PM Post Op Pain Management requested by surgeon per surgical: Progress Note Anesthesiologist: Ally Scott MD Resident/SENIOR MANUFACTURING TEST ENGINEER: Tashi Chambers MDPerformed by: resident/SENIOR MANUFACTURING TEST ENGINEER Preanesthetic timeout completed prior to procedure: patient [...] Regional: Bupiv 0.25% 30 mL EPI 1:200K T ANESTHESIOLOGY [facility] 2024-04-24 11:24:59 Associated Order(s): Intubation Intubation Date/Time: 04/24/2024 10:54 AM Urgency: elective Airway not difficult General Information and Staff Patient location during procedure: OR Performed: resident/SENIOR MANUFACTURING TEST ENGINEER Performed by: Koko Hylton MD Authorized by: [...] dentition and lips unchanged from pre-op. ANESTHESIOLOGY [facility] Notes Date/Time Note Provider Source 2024-06-04 09:39:26 Returned call and spoke with mother Mother states she took patient to [facility] this past weekend to get an xray of his knee because he was complaining of knee pain. Xrays were normal per mother Spoke with mother last week regarding knee pain and message from Dr Garcia was given Informed mother that it is expected to have some pain and discomfort as patient starts to participate in physical therapy and increase mobility/activities Advised to call back to make a sooner appointment with Dr Garcia to discuss if needed Current follow up appointment is scheduled for 07/02/2024 Message routed to doctor to inform Fiona Anne RN [facility] 2024-06-04 08:56:39 The patient's mother is following up. She has been waiting on a call. She said the patient is having a lot of pain in the knee. She said he was not able to got to therapy yesterday. The physical therapist had told him to contact the doctor. Temi Olivera [facility] 2024-06-03 14:25:23 Jose Woodall is a 18 year old male. Mom is calling stating that patient is still having a lot of pain in his leg. Mom is wanting to know if that is normal or not. Elza Casas [facility] 2024-05-30 12:34:14 Returned call and spoke with mother Message from doctor given to mother Mother then asked if patient can get a xray of his knee Informed mother that xray was performed at last visit on 05/14/2024 Informed that patient will have some pain/discomfort while continuing to heal and participating in therapy Medication was sent to pharmacy yesterday Fiona Anne RN [facility] 2024-05-30 02:25:44 Fiona, Please let him know that I expect that he should have some knee pain since we fixed his femur thru his knee. No indication for MRI Thx maF ORT-ORTHOPAEDIC SURGERY STAFF [facility] 2024-05-29 19:10:52 Fiona, We dropped him down to tramadol. When they call please explain rationale. Thx MAF [facility] 2024-05-29 13:30:20 Jose Woodall is a 18 year old malemom calling due to pt having knee pain for past 3 day. Requesting if they can get MRI order done and to be sent to [facility] . Please call mom at [phone] Deborah Nance [facility] 2024-05-29 10:54:48 Robaxin and Tramadol refilled [facility] 2024-05-29 10:39:35 Per last visit, patient was informed that pain medication was going to start being tapered down Pain medication refill request routed to Fiona Anne RN [facility] 2024-05-29 10:16:07 Jose Woodall is a 18 year old male Mother of the patient requesting to speak with a nurse regarding the patient's HYDROcodone-acetaminophen 7.5-325 mg per tablet. Wanting to know when they can get more medication. Please advise. Jose M Oneill [facility] 2024-05-28 17:02:07 Addended by: FIONA ANNE RN on: 05/28/2024 05:02 PM Modules accepted: Orders [facility] 2024-05-28 16:58:42 Per last visit, patient was informed that pain medication was going to start being tapered down Pain medication refill request routed to Dr [facility] 2024-05-28 13:35:37 Patient is requesting refill on Niota Niota was last refilled on 05/22/2024 Per doctor, too soon for refill Fiona Anne RN [facility] 2024-05-28 11:42:09 Jose Woodall is a 18 year old male Mother of Patient is requesting a refill of the HYDROcodone-acetaminophen 7.5-325 mg. Please send prescription to [facility] in [place]. Please assist. Marian Reyna [facility] 2024-05-22 12:34:40 DOS 04/24/2024- left femur IMN Niota 7.5/325mg last filled on 05/15/24- tabs Mother's request for Niota refill sent to the doctor Fiona Anne RN [facility] 2024-05-22 12:27:26 Jose Woodall is a 18 year old male Mom calling to request Hydrocodon refill surg 04/24 . Completley out of medication . Deborah Nance [facility] 2024-05-20 10:02:36 Form was sent via [employer] on 05/17/2024 Informed mother she will be contacted when form has been completed and signed by the doctor Fiona Anne RN [facility] 2024-05-20 09:27:58 Jose Woodall is a 18 year old male Delmy, mother of pt is calling wanting to know the status on the forms they dropped off for the provider to sign as it is for their insurance and they are needing it as soon as possible Please advise at [phone] (home) Savana Jeronimo [facility] 2024-05-17 14:39:53 Pts mom is calling to get the status of pts form being filled out. [phone] (home) Please advise when completed. Darlin Ball [facility] 2024-05-15 12:45:40 28 tabs Niota 7.5-325 mg sent to pharmacy. This cannot be refilled until 05/22/24. [facility] 2024-05-15 11:59:47 Mother called again regarding refill on Hydrocodone. Informed mother that it was too soon to refill medication yesterday Per doctor, medication will be sent to the pharmacy today. Informed mother that doctor will probably send in a lower dose of Hydrocodone to pharmacy Mother voiced understanding and had no further questions or concerns at this time Fiona Anne RN [facility] 2024-05-15 11:48:50 Jose Woodall is a 18 year old male Mom calling to check on status of refill. Please call with update Ariella Dominique [facility] 2024-05-15 11:12:35 Pts mom Delmy is calling [...] Mom is wanting this request completed today. [id number] - [place], [place] - [address] [facility] & [address] [facility] [place] [id number] Elian Irving [facility] 2024-05-14 16:10:46 It appears that the last prescription was sent on 05/08/24. We can refill it tomorrow since we need to wait at least 7 days. [facility] 2024-05-14 14:57:39 Jose Woodall is a 18 year old male Mother of patient is calling, stating that the pharmacy never received the patient's prescription of HYDROcodone-acetaminophen 10-325 mg tablet . Mother is requesting if provider will resend medication to pharmacy. Please advise. [id number] [place], [place] - [address] AT [employer] Fermin Vick [facility] 2024-05-13 16:40:54 Note reviewed. Mother of pt contacted, mother states pt will need refill of norco. Mother advised, unable to refill norco due to Rx from 05/08/24-05/15/24. Mother of pt advised to keep f/u appt with Dr. Garcia as scheduled on 05/14/24. Mother/pt to discuss med refill with Dr. Garcia. Mother of pt verbalized understanding and agrees. Shilpi Westbrook RN [facility] 2024-05-13 13:38:57 Pts mom is calling to check the status of this refill request. Pts mom states the pt is out of his Hydrocodone and is asking for this refill to be sent today. Please advise the pts mom with this request. Elian Irving [facility] 2024-05-13 11:18:57 Jose Woodall is a 18 year old male Patients mother called stating her son is having leg pain and asked if Hydrocodone can be called in. Please contact [phone] (home) [id number] [address] AT [employer] Aroldo Alfonso [facility] 2024-05-09 06:40:40 We are unable to refill the medication yet as it has only been 6 days since the last Niota prescription was sent in. [facility] 2024-05-08 15:21:30 Left femur IMN on 04/24/2024 Mother calling for a refill on medication again Medication was last sent to the pharmacy on May 03 Pain medication refill request sent to doctor Fiona Anne RN [facility] 2024-05-08 13:12:16 Jose Woodall is a 18 year old male Mom requesting HYDROcodone-acetaminophen 10-325 mg tablet Deborah Nance [facility] 2024-05-05 22:12:20 Pt given printed and verbal [...] distress, accompanied by mother. Paige Joyner RN [facility] 2024-05-05 20:31:56 Pt. Presents to ED ambulatory with walker with C/O of post-op bandage change; pt. Mother reports she called [facility] & they instructed pt. To come to ED to change dressings; pt. Had left femur fx from 04/24/2024; no abnormal bleeding to dressings per pt. Radha Stanley RN [facility] 2024-05-05 20:28:00 Images from the original note were not included. EMERGENCY DEPARTMENT ENCOUNTER [facility] Patient Name: Jose Woodall Date of : 2005 18 year old Exam Room:8/[facility] Primary Care Physician: Gutierrez Wolfe Pre- Hospital [...] bandage change; pt. Mother reports she called [facility] & they instructed pt. [...] Left 04/24/2024 Surgeon: Leonardo Garcia MD; Location: [facility] Allergies No Known Allergies Social History Tobacco [...] is not hypoxic. Interpreted. Reassessment:stable Communication with sap consultant: None. Limitations to patient care and [...] file Future Appointments Tomorrow Julieta Maloney, PT [facility] Physical/Occupational Rehab, [facility] In 3 days Julieta Maloney, PT [facility] Physical/Occupational Rehab, [facility] In 1 week Julieta Maloney, PT [facility] Physical/Occupational Rehab, [facility] In 1 week Leonardo Garcia MD [facility] Orthopedics, [place], [facility] In 1 week Julieta Maloney PT [facility] Physical/Occupational Rehab, [facility] In 3 weeks Vincent Townsend MD [facility] Cardiology, [facility] Alejandro Lora Jr., MD Clinical Hospital Admissions Officer [facility] Emergency Department [employer] is used frequently and may produce errors. Promptly contact for obvious discrepancies. Alejandro Lora MD 05/05/242203 [facility] 2024-05-03 22:25:00 Regarding: mom asks if she can take him [facility] ----- Message from Patient Senior Project Manager Engineering sent at 05/03/2024 10:24 PM CDT ----- Jose Woodall is a 18 year old male Piedad Trujillo RN [facility] 2024-05-03 22:25:00 Adult Triage Assessment Jose Woodall [...] Protocols used: Information Only Call - No [id number] [facility] 2024-05-03 10:14:05 Rx at [facility] cancelled and transferred to [facility] 2024-05-03 09:42:39 Message has been sent to the doctor regarding transferring medication to [facility] pharmacy Fiona Anne RN [facility] 2024-05-02 16:55:52 Jose Woodall is a 18 year old male Mother is calling requesting to speak with a nurse regarding the pts medication being transferred to [facility]. Please see previous encounter that was closed 3..25 HYDROcodone-acetaminophen 10-325 mg tablet Annamarie Patel [facility] 2024-05-02 14:50:54 Called [facility] pharmacy and was told that they do not have the Niota 10/325mg in stock Patient's mother is requesting to have medication transferred to the [facility] pharmacy Informed mother that message has been sent to doctor Fiona Anne RN [facility] 2024-05-02 14:11:11 Pts mom is calling to check the status of this request. Mom is asking for the prescription to go to [facility] instead of [facility]. Mom would like a call once the prescription has been sent to [facility] , thank you! [facility][id number] - [place], [place] - [address] AT [facility] [employer] [facility] [address] [place] [address] Elian Irving [facility] 2024-05-02 11:16:22 Jose Woodall is a 18 year old male mother calling in requesting for HYDROcodone-acetaminophen to be transferred to [facility] #[id number] AT [facility] [employer] [facility] Nyla Zamora [facility] 2024-05-02 09:02:01 Medication sent to pharmacy by doctor Fiona Anne RN [facility] 2024-05-02 08:56:24 Message routed to doctor regarding refill on pain medication [facility] 2024-05-01 16:44:14 Jose Woodall is a 18 year old male Mom calling for HYDROcodone-acetaminophen 10-325 mg tablet refill. Out of medication Deborah Nance [facility] 2024-05-01 14:02:42 Addendum created 05/01/24 9622 by Tashi Chambers MD Child order released for a procedure order, Clinical Note Signed, Intraprocedure Blocks edited, SmartForm saved [facility] 2024-04-30 15:58:22 Addendum created 04/30/24 3208 by Ally Scott MD Attestation recorded in Intraprocedure, Flowsheet accepted, Intraprocedure Attestations filed AN-ANESTHESIOLOGY ANESTHESIOLOGIST [facility] 2024-04-29 15:39:03 Returned call and spoke with mother Advised mother to keep dressing clean, dry, and intact until post op appointment Can reinforce dressing if it comes off Or if dressing get wet or soiled, then can remove and replace with a clean dry dressing No lotions, creams, or ointments on incision site Fiona Anne RN [facility] 2024-04-29 15:28:31 Jose Woodall is a 18 year old male Mother of the patient requesting to speak with a nurse. She is wanting to know where to get more of the waterproof bandage that was used after the patient's surgery. Please advise. Jose M Oneill [facility] 2024-04-28 12:57:00 Regardinyr/male - had surgery on 04/24 and is currently having severe pain on leg ----- Message from Patient Senior Project Manager Engineering sent at 04/28/2024 12:55 PM CDT ----- Jose Woodall is a 18 year old male 18yr/male States he had surgery on 04/24 and is having severe pain on his leg and feel like he is going to pass out when he gets up to go to the restroom. Sarah Davison RN [facility] 2024-04-28 12:57:00 Adult Triage Assessment Last Clinic [...] he was taken by ambulance yesterday to [facility] ER for weakness, heart racing, and seeing blurry. Mother of patient states he was only given IV fluids, and was sent home.Mother of patient was informed that this Nurse would call the sap portal consultant Ortho provider, and get back to her shortly. Strong call back warnings were given. Mother of patient verbalized understanding. [phone] Industrial Tech Instructor Ortho MD paged. [phone] Dr. Huerta called [...] Mother of patient. Mother of patient informed sap portal consultant MD that patient was taken to the [...] bathing, etc. Dr. Huerta advised that the Niota be taken every 6 hours four times [...] pain medications Protocols used: Post-Op Symptoms and [id number] Sarah Davison RN 04/28/2024 1:28 PM [facility] 2024-04-26 20:47:00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
[2024-06-18] MEDS ORDERED: IBUPROFEN 400 MG TAB ONE (04:11)
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
--- NOTE | 2024-06-18 05:32 | EDPHYS ---
Physician Documentation [facility] Name: Marito Dee Age: 18 yrs Sex: Male : 2005 Arrival Date: 06/18/2024 Time: 03:36 Bed DX3 Private MD: ED Physician Lewis Alcantara HPI: 06/18 04:01 This 18 yrs old Male presents to ER via Unassigned with complaints of Leg sp4 Injury. 04:06 Left leg pain, history of left femur fixation 04/24/2024. sp4 06/19 01:05 Patient presents with a left groin and left thigh pain after he was running on the [address] Historical: - Allergies: 06/18 04:06 No Known Allergies; cg - Home Meds: 04:06 Adderall XR 30 mg oral Capsule, ER 24 hr 1 cap every morning [Active]; Flexeril Oral 10 cg mg [Active]; - PMHx: 04:06 ADD/ADHD; Asthma; Anxiety; cg - Immunization history:: Adult Immunizations up to date. - Infectious Disease History:: Denies. - Social history:: Smoking status: Patient denies any tobacco usage or history of. - Family history:: not pertinent. ROS: 06/19 01:05 Constitutional: Negative for fever, chills, and weight loss, positive left groin and sp4 left thigh pain All other systems are negative, Exam: 01:06 Constitutional: This is a well developed, well nourished patient who is awake, alert, sp4 and in no acute distress. Head/Face: Normocephalic, atraumatic. Eyes: Pupils equal round and reactive to light, extra-ocular motions intact. Lids and lashes normal. Conjunctiva and sclera are not injected. Cornea within normal limits. Periorbital areas with no swelling, redness, or edema. ENT: Nares patent. No nasal discharge, no septal abnormalities noted. Tympanic membranes are normal and external auditory canals are clear. Oropharynx with no redness, swelling, or masses, exudates, or evidence of obstruction, uvula midline. Mucous membranes moist. Neck: Trachea midline, no thyromegaly or masses palpated, and no cervical lymphadenopathy. Supple, full range of motion without nuchal rigidity, or vertebral point tenderness. Chest/axilla: Normal chest wall appearance and motion. Nontender with no deformity. No lesions are appreciated. Cardiovascular: Regular rate and rhythm with a normal S1 and S2. No gallops, murmurs, or rubs. Normal PMI, no JVD. No pulse deficits. Respiratory: Lungs have equal breath sounds bilaterally, clear to auscultation and percussion. No rales, rhonchi or wheezes noted. No increased work of breathing, no retractions or nasal flaring. Abdomen/GI: Soft, with normal bowel sounds. No distension or tympany. No guarding or rebound. No evidence of tenderness throughout. Back: No spinal tenderness. No costovertebral tenderness. Skin: Warm, dry with normal turgor. Normal color with no rashes, no lesions, and no evidence of cellulitis. MS/ Extremity: Pulses equal, no cyanosis. Neurovascular intact. Full, normal range of motion. Neuro: Awake and alert, GCS 15, oriented to person, place, time, and situation. Cranial nerves II-XII grossly intact. Motor strength 5/5 in all extremities. Sensory grossly intact. Psych: Awake, alert, with orientation to person, place and time. Behavior, mood, and affect are within normal limits Vital Signs: 06/18 03:56 BP 149 / 75; Pulse 88; Resp 16; Temp 98.7; Pulse Ox 100% ; Weight 86.18 kg; Height 6 cg ft. 0 in. ; Pain 10/10; 03:56 Body Mass Index 25.77 (86.18 kg, 182.88 cm) - Percentile 80.0 % cg 03:56 Pain Scale: Adult cg Helene Coma Score: 06/19 01:06 Eye Response: spontaneous(4). Motor Response: obeys commands(6). Verbal Response: sp4 oriented(5). Total: 15. MDM: 06/18 04:05 Medical Screening Exam initiated sp4 06/19 01:07 Differential diagnosis: dislocation, open fracture, closed fracture, contusion, sp4 abrasion, tendonitis. Data reviewed: vital signs, nurses notes, radiologic studies, plain films. ED course: EXAM: XR Left Femur, 2 Views CLINICAL HISTORY: The patient is 18 years old and is Male; Left femur hardware TECHNIQUE: Two views of the left femur. COMPARISON: No relevant prior studies available. FINDINGS: Bones/joints: Intramedullary nail placement for internal fixation of a comminuted fracture of the mid left femoral shaft. Callus formation visualized. No dislocation or significant arthropathy. Soft tissues: Unremarkable. IMPRESSION: Intramedullary nail placement for internal fixation of a comminuted fracture of the mid left femoral shaft. Prior x-rays from June 03, 2024 are not available for comparison. Electronically signed by: Delmy Holguin MD 06/18/2024 06:17 AM. 01:09 Consideration of Admission/Observation Escalation of care including sp4 admission/observation considered. ED course: Surgical hardware is not displaced, patient stable for discharge home. . 06/18 04:05 Order name: Femur Left XRAY sp4 06/18 05:30 Order name: Crutches; Complete Time: 05:57 sp4 Administered Medications: 06/18 04:12 Drug: Ibuprofen PO 800 mg PO once Route: PO; cg 05:57 Follow up: Response: No adverse reaction; Marked relief of symptoms vc1 Disposition: 06/19 01:07 Chart complete. sp4 Disposition Summary: 06/18/24 05:32 Discharge Ordered Notes: Location: Home sp4 Problem: new sp4 Symptoms: have improved sp4 Condition: Stable sp4 Diagnosis - Left Lower extremity sprain, acute left thigh extremity pain, status post sp4 intramedullary kristine left femur Followup: sp4 - With: Private Physician - When: 7 - 10 days - Reason: Recheck today's complaints Discharge Instructions: - Discharge Summary Sheet sp4 - Distal Femur Fracture Treated With ORIF, Care After sp4 Forms: - Patient Portal Instructions sp4 Prescriptions: - Ibuprofen 800 mg Oral Tablet - take 1 tablet ORAL route every 8 hours As needed take with food; 30 tablet; sp4 Refills: 0, Product Selection Permitted Signatures: Dispatcher [employer] Kelly Sharma RN RN cg Lewis Alcantara MD MD sp4 Viji Rodriguez RN vc1
[2024-06-18 06:06] VITALS: BP 149/75; TEMP 98.7; O2SAT 100
--- NOTE | 2024-06-18 06:23 | RAD REPORT ---
EXAM: XR Left Femur, 2 Views CLINICAL HISTORY: The patient is 18 years old and is Male; Left femur hardware TECHNIQUE: Two views of the left femur. COMPARISON: No relevant prior studies available. FINDINGS: Bones/joints: Intramedullary nail placement for internal fixation of a comminuted fracture of the mid left femoral shaft. Callus formation visualized. No dislocation or significant arthropathy. Soft tissues: Unremarkable. IMPRESSION: Intramedullary nail placement for internal fixation of a comminuted fracture of the mid left femora l shaft. Prior x-rays from June 03, 2024 are not available for comparison. Electronically signed by: Delmy Holguin MD 06/18/2024 06:17 AM CDT RP V2 Due to temporary technical issues with the PACS/[place] reporting system, reports are being farhat d by the in-house radiologist without review as a courtesy to ensure prompt reporting the interpreting radiologist is fully responsible for the content of the report. Transcribed Date/Time: 06/18/2024 6:23 AM
== END 2024-06-18 06:02 | disposition home or self-care (01) ==
LOC: ER 03:36
DX: S86.912A Strain of unspecified muscle(s) and tendon(s) at lower leg level, left leg, initial encounter (principal); Z98.890 Other specified postprocedural states
CPT/HCPCS: 99283